=== PATIENT | female | born 1980 | race Caucasian/White ===

== ENCOUNTER 2017-12-09 08:00 | Emergency (ER) | payer BC ==
--- NOTE | 2017-12-09 08:47 | EKG ---
Test Date: 2017-12-09 Test Time: 08:25:56 Overhauler Helper: TAN MEASUREMENT RESULTS: Intervals: Rate: 92 MD: 140 QRSD: 98 QT: 364 QTc: 450 [place]: P: 16 MD: 140 QRS: 13 T: 13 INTERPRETIVE STATEMENTS: Normal sinus rhythm Normal ECG No previous ECG available for comparison Electronically Signed On 12-09-17 08:46:23 CDT by Michael Waldron
[2017-12-09 08:54] LABS: Absolute Lymphocytes (CBC) 2.7 K/uL (0.7-4.9); Absolute Monocytes 0.5 K/uL (0.1-1.3); Absolute Neutrophil 3.9 K/uL (1.8-8.0); Basophils % 0.5 % (0-1.3); Eosinophils % 3.8 % (0-4.4); Hematocrit 48.2 % (36.0-45.0); Lymphocytes % 36.6 % (15.3-44.8); MCH 30.8 pg (27.0-35.0); MCV 89.4 fL (80-100); MPV 7.8 fL (7.6-11.3); Monocytes % 7.1 % (3.3-12.3); RBC Red Blood Cell Count 5.39 M/uL (3.86-4.86)
[2017-12-09 08:59] LABS: Protime INR 1.03
[2017-12-09] MEDS ORDERED: NA CHLORIDE 0.9% 1,000 ML ONE (09:03)
[2017-12-09] MEDS ORDERED: KETOROLAC 30 MG/ML INJ ONE (09:03)
[2017-12-09 09:13] LABS: Potassium 3.8 mEq/L (3.6-5.0)
[2017-12-09 09:19] LABS: Albumin 4.5 g/dL (3.2-5.5); Bilirubin Direct 0.1 mg/dL (0-0.2); Bilirubin Total 0.6 mg/dL (0.3-1.2); Magnesium 2.1 mg/dL (1.8-2.5); Protein, Total 8.6 g/dL (6.0-8.3)
[2017-12-09 09:21] LABS: CKMB Creatine Kinase MB 1.6 ng/ml (0.3-4.0)
--- NOTE | 2017-12-09 09:21 | RAD REPORT ---
EXAM DESCRIPTION: RAD - Chest Single View - 12/09/2017 9:13 am CLINICAL HISTORY: Chest pain COMPARISON: July 2008 TECHNIQUE: AP portable chest image was obtained 0902 hours . FINDINGS: Lungs are clear. Heart and vasculature are normal. No measurable pleural effusion and no p neumothorax. No gross bony abnormality seen. No acute aortic findings suspected. IMPRESSION: No acute cardiopulmonary process. No suspicious change from comparison.
--- NOTE | 2017-12-09 09:45 | RAD REPORT ---
EXAM DESCRIPTION: CT - Head Brain Wo Cont - 12/09/2017 9:29 am CLINICAL HISTORY: Headache left arm numbness, tingling in the fingers COMPARISON: None. TECHNIQUE: Axial 5 mm thick images of the head were obtained without IV contrast. All CT scans are performed using dose optimization technique as appropriate and may include automated exposure control or mA/KV adjustment according to patient size. FINDINGS: No intracranial hemorrhage, mass, edema or shift of mid-line structures. No acute infarcti on changes seen. No abnormal extra-axial fluid collections. Ventricles are normal. Mastoid air cells and visualized portions of the paranasal sinuses are clear. No acute bony findings. IMPRESSION: Negative non-contrast CT head examination.
[2017-12-09 10:00] LABS: Urine Blood NEGATIVE (NEG); Urine Glucose NEGATIVE (NEG); Urine Protein NEGATIVE (NEG); Urine Specific Gravity 1.015 (1.005-1.030); Urine pH 5.5 (5.0-7.0)
[2017-12-09] MEDS ORDERED: MORPHINE 4 MG/ML SYR ONE (10:21)
[2017-12-09] MEDS ORDERED: ONDANSETRON 4 MG/2 ML VIAL ONE (10:21)
--- NOTE | 2017-12-09 10:44 | EDPHYS ---
Physician Documentation [facility] Name: Kaley Dobson Age: 37 yrs Sex: Female : 1980 Arrival Date: 12/09/2017 Time: 08:03 Bed 19 Private MD: out of town, doctor ED Physician Rayo Webster HPI: 12/09 08:59 This 37 yrs old Female presents to ER via Ambulatory with complaints of Chest kdr Pain, Numbness Of Arm, Headache. 09:00 On Thursday last, the patient stopped smoking (2 ppd to 3 cigarettes pd) and drinking kdr Cokes (12 pack per two days). Since then, she has developed a severe frontal WAHL and tingling in her left arm that radiates to her finger tips. When she smokes a cigarette, she gets slight temporary relief. She has no photophobia or n/v. WAHL onset was brisk but not abrupt or thunderclap. Onset: The symptoms/episode began/occurred suddenly, 2 day(s) ago. Severity of symptoms: At their worst the symptoms were moderate in the emergency department the symptoms are unchanged. The patient has not experienced similar symptoms in the past. The patient has not recently seen a physician. 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 - Social history:: Smoking status: Patient uses tobacco products, smokes one pack cigarettes per day. recently quit smoking. ROS: 09:00 Constitutional: Negative for fever, chills, and weight loss, Eyes: Negative for injury, kdr pain, redness, and discharge, ENT: Negative for injury, pain, and discharge, Neck: Negative for injury, pain, and swelling, Cardiovascular: Negative for palpitations, and edema - she has had chest discomfort Respiratory: Negative for shortness of breath, cough, wheezing, and pleuritic chest pain, Abdomen/GI: Negative for abdominal pain, nausea, vomiting, diarrhea, and constipation, Back: Negative for injury and pain, : Negative for injury, bleeding, discharge, and swelling, MS/Extremity: Negative for injury and deformity, Skin: Negative for injury, rash, and discoloration, Psych: Negative for depression, anxiety, suicide ideation, homicidal ideation, and hallucinations, Allergy/Immunology: Negative for hives, rash, and allergies, Endocrine: Negative for neck swelling, polydipsia, polyuria, polyphagia, and marked weight changes, Hematologic/Lymphatic: Negative for swollen nodes, abnormal bleeding, and unusual bruising. 09:00 Neuro: Positive for headache, Paresthesia to left arm/finer tips. Exam: 09:00 Constitutional: This is a well developed, well nourished patient who is awake, alert, kdr and in no acute distress. Head/Face: Normocephalic, atraumatic. Eyes: Pupils equal round and reactive to light, extra-ocular motions intact. Lids and lashes normal. Conjunctiva and sclera are non-icteric and not injected. Cornea within normal limits. Periorbital areas with no swelling, redness, or edema. Neck: Trachea midline, no thyromegaly or masses palpated, and no cervical lymphadenopathy. Supple, full range of motion without nuchal rigidity, or vertebral point tenderness. No Meningismus. Chest/axilla: Normal chest wall appearance and motion. Nontender with no deformity. No lesions are appreciated. Cardiovascular: Regular rate and rhythm with a normal S1 and S2. No gallops, murmurs, or rubs. Normal PMI, no JVD. No pulse deficits. Respiratory: Lungs have equal breath sounds bilaterally, clear to auscultation and percussion. No rales, rhonchi or wheezes noted. No increased work of breathing, no retractions or nasal flaring. Abdomen/GI: Soft, non-tender, with normal bowel sounds. No distension or tympany. No guarding or rebound. No evidence of tenderness throughout. Back: No spinal tenderness. No costovertebral tenderness. Full range of motion. Skin: Warm, dry with normal turgor. Normal color with no rashes, no lesions, and no evidence of cellulitis. MS/ Extremity: Pulses equal, no cyanosis. Neurovascular intact. Full, normal range of motion. Neuro: Awake and alert, GCS 15, oriented to person, place, time, and situation. Cranial nerves II-XII grossly intact. Motor strength 5/5 in all extremities. Sensory grossly intact. Cerebellar exam normal. Normal gait. Psych: Awake, alert, with orientation to person, place and time. Behavior, mood, and affect are within normal limits. Vital Signs: 08:22 BP 143 / 104; Pulse 88; Resp 18 S; Temp 98.2(TE); Pulse Ox 99% on R/A; Weight 115.67 iw kg; Height 5 ft. 6 in. (167.64 cm); Pain 10/10; 08:55 BP 112 / 78; Pulse 86; Resp 15; Pulse Ox 100% ; tw2 09:21 BP 123 / 86; Pulse 85; Resp 19; Pulse Ox 98% on R/A; tw2 10:41 BP 115 / 84; Pulse 87; Resp 16; Pulse Ox 100% on R/A; tw2 11:12 BP 120 / 89; Pulse 90; Resp 17; Pulse Ox 100% on R/A; tw2 08:22 Body Mass Index 41.16 (115.67 kg, 167.64 cm) iw MDM: 08:26 Patient medically screened. kdr 10:46 Data reviewed: vital signs, nurses notes, lab test result(s), radiologic studies. kdr 12/09 08:37 Order name: Basic Metabolic Panel; Complete Time: 10:12/09 08:37 Order name: BNP; Complete Time: 10: 12/09 08:37 Order name: CBC with Diff; Complete Time: 10: 12/09 08:37 Order name: Ckmb; Complete Time: 10:12/09 08:37 Order name: CPK; Complete Time: 10: 12/09 08:37 Order name: LFT's; Complete Time: 10: 12/09 08:37 Order name: Magnesium; Complete Time: 10:12/09 08:37 Order name: PT-INR; Complete Time: 10: 12/09 08:37 Order name: Ptt, Activated; Complete Time: 10: 12/09 08:37 Order name: Troponin (emerg Dept Use Only); Complete Time: 10: 12/09 08:37 Order name: XRAY Chest (1 view); Complete Time: 10: 1 12/09 08:56 Order name: CT Head Brain wo Cont; Complete Time: : kdr 05/16 09:19 Order name: Urine Dipstick--Ancillary (enter results); Complete Time: 10:11 em12/09 09:19 Order name: Urine --Ancillary (enter results); Complete Time: 10:11 12/09 08:37 Order name: EKG; Complete Time: 08:37 em12/09 08:37 Order name: Cardiac monitoring; Complete Time: 08:46 12/09 08:37 Order name: EKG - Nurse/Tech; Complete Time: 08:46 12/09 08:37 Order name: IV Saline Lock; Complete Time: 08:47 12/09 08:37 Order name: Labs collected and sent; Complete Time: 08:47 12/09 08:37 Order name: O2 Per Protocol; Complete Time: 08:47 12/09 08:37 Order name: O2 Sat Monitoring; Complete Time: 08:47 12/09 08:37 Order name: Urine Dipstick-Ancillary (obtain specimen); Complete Time: 09:15 em1 Administered Medications: 09:12 Drug: TORadol 30 mg Route: IVP; Site: right antecubital; tw2 10:17 Follow up: Response: No adverse reaction; Pain is unchanged, physician notified tw2 09:14 Drug: NS 0.9% 1000 ml Route: IV; Rate: 1 bolus; Site: right antecubital; tw2 11:10 Follow up: Response: No adverse reaction; IV Status: Completed infusion; IV Intake: tw2 1000ml 10:22 Drug: Zofran 4 mg Route: IVP; Site: right antecubital; tw2 10:50 Follow up: Response: No adverse reaction tw2 10:24 Drug: morphine 4 mg Route: IVP; Site: right antecubital; tw2 11:00 Follow up: Response: Pain is decreased tw2 Disposition: 12/09/17 10:43 Discharged to Home. Impression: Caffeine and nicotine withdrawal, Headache. - Condition is Stable. - Discharge Instructions: General Headache Without Cause, Smoking Cessation, Smoking, You Can Quit, [id number]. - Prescriptions for Tylenol- Codeine #3 300-30 mg Oral Tablet - take 2 tablets by ORAL route every 6 hours As needed Take one to two tablets every 4 - 6 hours as needed; 12 tablet. Xanax 1 mg Oral Tablet - take 1 tablet by ORAL route every 8 hours As needed; 12 tablet. - Medication Reconciliation Form, Thank You Letter, Antibiotic Education, Prescription Opioid Use, Work release form form. - Follow up: Private Physician; When: 2 - 3 days; Reason: If symptoms return, Further diagnostic work-up, Recheck today's complaints, Continuance of care, Re-evaluation by your physician. - Problem is new. - Symptoms have improved. Signatures: Dispatcher [employer] EDMS Rayo Webster MD MD kdr Williams, Irene, RN RN Alli Nicholson em1 Pema Sumner RN RN tw2 Corrections: (The following items were deleted from the chart) 08:46 08:22 PMHx: None; iw tw2 11:14 10:43 12/09/2017 10:43 Discharged to Home. Impression: Caffeine and nicotine tw2 withdrawal; Headache. Condition is Stable. Forms are Medication Reconciliation Form, Thank You Letter, Antibiotic Education, Prescription Opioid Use. Follow up: Private Physician; When: 2 - 3 days; Reason: If symptoms return, Further diagnostic work-up, Recheck today's complaints, Continuance of care, Re-evaluation by your physician. Problem is new. Symptoms have improved. kdr
--- NOTE | 2017-12-09 10:44 | ER ---
Nurse's Notes [facility] Name: Kaley Dobson Age: 37 yrs Sex: Female : 1980 Arrival Date: 12/09/2017 Time: 08:03 Bed 19 Private MD: out of town, doctor Diagnosis: Caffeine and nicotine withdrawal;Headache Presentation: 12/09 08:19 Presenting complaint: Patient states: has had headache since yesterday morning, seeing iw spots when she blinks, quit smoking and caffeine on Thursday, also started having left arm numbness, tingling in fingers this morning, also feels a heaviness in left side of chest. Transition of care: patient was not received from another setting of care. Onset of symptoms was December 07, 2017. Initial Sepsis Screen: Does the patient meet any 2 criteria? No. Patient's initial sepsis screen is negative. Does the patient have a suspected source of infection? No. Patient's initial sepsis screen is negative. Care prior to arrival: None. 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 - Social history:: Smoking status: Patient uses tobacco products, smokes one pack cigarettes per day. recently quit smoking. Screenin:20 Abuse screen: Denies threats or abuse. Nutritional screening: No deficits noted. tw2 Tuberculosis screening: No symptoms or risk factors identified. Fall Risk None identified. Assessment: 08:34 General: Appears obese, well groomed, Behavior is cooperative, anxious. Pain: Complains tw2 of pain in chest and headache Pain radiates to left arm Pain began gradually. Neuro: Level of Consciousness is awake, alert, obeys commands, Oriented to person, place, time, situation. Cardiovascular: Reports chest pain, Denies shortness of breath. Cardiovascular: Heart tones S1 S2 Capillary refill < 3 seconds Patient's skin is warm and dry. Respiratory: Airway is patent Respiratory effort is even, unlabored, Respiratory pattern is regular, symmetrical, Breath sounds are clear bilaterally. GI: No signs and/or symptoms were reported involving the gastrointestinal system. Abdomen is round non-distended, obese, Bowel sounds present X 4 quads. : No signs and/or symptoms were reported regarding the genitourinary system. EENT: Reports pain in top of head and forehead. Derm: No signs and/or symptoms reported regarding the dermatologic system. Musculoskeletal: Range of motion: intact in all extremities, Reports tingling in left arm. 08:46 Reassessment: provider Dr. Webster at bedside at this time. tw2 09:22 Reassessment: Patient appears in no apparent distress at this time. Patient and/or tw2 family updated on plan of care and expected duration. Pain level reassessed. Patient is alert, oriented x 3, equal unlabored respirations, skin warm/dry/pink. 10:41 Reassessment: Patient appears in no apparent distress at this time. Patient and/or tw2 family updated on plan of care and expected duration. Pain level reassessed. Patient is alert, oriented x 3, equal unlabored respirations, skin warm/dry/pink. Patient states feeling better. Patient states symptoms have improved. 11:13 Reassessment: Patient appears in no apparent distress at this time. Patient and/or tw2 family updated on plan of care and expected duration. Pain level reassessed. Patient is alert, oriented x 3, equal unlabored respirations, skin warm/dry/pink. Vital Signs: 08:22 BP 143 / 104; Pulse 88; Resp 18 S; Temp 98.2(TE); Pulse Ox 99% on R/A; Weight 115.67 iw kg; Height 5 ft. 6 in. (167.64 cm); Pain 10/10; 08:55 BP 112 / 78; Pulse 86; Resp 15; Pulse Ox 100% ; tw2 09:21 BP 123 / 86; Pulse 85; Resp 19; Pulse Ox 98% on R/A; tw2 10:41 BP 115 / 84; Pulse 87; Resp 16; Pulse Ox 100% on R/A; tw2 11:12 BP 120 / 89; Pulse 90; Resp 17; Pulse Ox 100% on R/A; tw2 08:22 Body Mass Index 41.16 (115.67 kg, 167.64 cm) iw ED Course: 08:03 Patient arrived in ED. mr 08:03 out of town, doctor is Private Physician. mr 08:16 Pema Sumner, RN is Primary Nurse. tw2 08:19 Arm band placed on. tw2 08:19 Placed in gown. Bed in low position. Adult w/ patient. pvc monitor on. Pulse ox on. tw2 NIBP on. 08:20 No provider procedures requiring assistance completed. Patient maintains SpO2 tw2 saturation greater than 95% on room air. 08:21 Triage completed. iw 08:26 Rayo Webster MD is Attending Physician. kdr 08:30 Inserted saline lock: 22 gauge in right antecubital area, using aseptic technique. tw2 Blood collected. 09:[address] vm2 09:12 X-ray completed. Portable x-ray completed in exam room. Patient tolerated procedure la2 well. 09:14 XRAY Chest (1 view) In Process Unspecified. EDMS 09:29 CT completed. Patient tolerated procedure well. Patient moved to CT via stretcher. sj Patient moved back from CT. 09:30 CT Head Brain wo Cont In Process Unspecified. EDMS 09:36 EKG done, by aerospace physiological technician. reviewed by Rayo Webster MD. sm3 11:14 IV discontinued, intact, bleeding controlled, No redness/swelling at site. Pressure tw2 dressing applied. Administered Medications: 09:12 Drug: TORadol 30 mg Route: IVP; Site: right antecubital; tw2 10:17 Follow up: Response: No adverse reaction; Pain is unchanged, physician notified tw2 09:14 Drug: NS 0.9% 1000 ml Route: IV; Rate: 1 bolus; Site: right antecubital; tw2 11:10 Follow up: Response: No adverse reaction; IV Status: Completed infusion; IV Intake: tw2 1000ml 10:22 Drug: Zofran 4 mg Route: IVP; Site: right antecubital; tw2 10:50 Follow up: Response: No adverse reaction tw2 10:24 Drug: morphine 4 mg Route: IVP; Site: right antecubital; tw2 11:00 Follow up: Response: Pain is decreased tw2 Intake: 11:10 IV: 1000ml; Total: 1000ml. tw2 Outcome: 10:43 Discharge ordered by . kdr 11:13 Discharged to home ambulatory, with family. tw2 11:13 Condition: stable 11:13 Discharge instructions given to patient, family, Instructed on discharge instructions, follow up and referral plans. no drinking with medication, no driving heavy equipment, medication usage, Demonstrated understanding of instructions, follow-up care, medications, Prescriptions given X 2. 11:14 Patient left the ED. tw2 Signatures: Dispatcher [employer] EDMS Rayo Webster MD MD [facility] Antwan, Jimena mr Surendra, Marion Chowdhury RN RN iw Pema Sumner RN RN 2 Cathy Harrison Claudette Sanchez Shakira 3 Corrections: (The following items were deleted from the chart) 08:46 08:22 PMHx: None; [facility]
== END 2017-12-09 11:14 | disposition home or self-care (01) ==
LOC: ER 08:00
DX: F15.93 Other stimulant use, unspecified with withdrawal (principal); F17.213 Nicotine dependence, cigarettes, with withdrawal; Z88.0 Allergy status to penicillin
CPT/HCPCS: 36415; 70450; 71045; 80048; 80076; 81003; 81025; 82550; 82553; 83735; 83880; 84484; 85025; 85610; 85730; 93005; 96361; 96374; 96375; 99285; J2405; J7030

== ENCOUNTER 2018-06-23 19:34 | Emergency (ER) | payer BC ==
[2018-06-23] MEDS ORDERED: HYDROCODONE/APAP 5/325 MG TAB ONE (20:59)
[2018-06-23] MEDS ORDERED: TETANUS & DIPHTHERIA TOX,ADULT 0.5 ML VIAL ONE (20:59)
[2018-06-23] MEDS ORDERED: LIDOCAINE 1% MPF 5 ML VIAL ONE (21:02)
--- NOTE | 2018-06-23 21:39 | ER ---
Nurse's Notes [facility] Name: Kaley Dobson Age: 37 yrs Sex: Female : 1980 Arrival Date: 06/23/2018 Time: 19:37 Bed 9 Private MD: Diagnosis: Cutaneous abscess of back [any part, except buttock] Presentation: 06/23 20:07 Presenting complaint: Patient states: Redness and inflammation to cyst in middle of aj back for 2 days. Patient states, "I have had this bump there for years but it has never gotten so swollen and painful.". Transition of care: patient was not received from another setting of care. Onset of symptoms was June 21, 2018. Risk Assessment: Do you want to hurt yourself or someone else? Patient reports no desire to harm self or others. Initial Sepsis Screen: Does the patient meet any 2 criteria? No. Patient's initial sepsis screen is negative. Does the patient have a suspected source of infection? No. Patient's initial sepsis screen is negative. Care prior to arrival: None. 20:07 Method Of Arrival: Ambulatory 20:07 Acuity: JES 4 aj Triage Assessment: 20:10 General: Appears in no apparent distress. comfortable, Behavior is calm, cooperative, aj appropriate for age. Pain: Complains of pain in thoracic area. Neuro: Level of Consciousness is awake, alert, obeys commands, Oriented to person, place, time, situation, Appropriate for age. Respiratory: Airway is patent Respiratory effort is even, unlabored, Respiratory pattern is regular, symmetrical. Derm: Skin is intact, is healthy with good turgor, Skin is pink, warm \\T\\ dry. normal, Abscess located on thoracic area. 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 - Social history:: Smoking status: Patient/guardian denies using tobacco. - Ebola Screening: : Patient negative for fever greater than or equal to 101.5 degrees Fahrenheit, and additional compatible Ebola Virus Disease symptoms Patient denies exposure to infectious person Patient denies travel to an Ebola-affected area in the 21 days before illness onset. Screenin:19 Abuse screen: Denies threats or abuse. Denies injuries from another. Nutritional ao screening: No deficits noted. Tuberculosis screening: No symptoms or risk factors identified. Fall Risk None identified. Assessment: 20:17 General: Appears in no apparent distress. comfortable, Behavior is calm, cooperative, ao appropriate for age. Pain: Complains of pain in back. Neuro: Level of Consciousness is awake, alert, obeys commands, Oriented to person, place, time, situation, Appropriate for age Moves all extremities. Full function Speech is normal, Facial symmetry appears normal. Cardiovascular: Capillary refill < 3 seconds Patient's skin is warm and dry. Respiratory: Airway is patent Respiratory effort is even, unlabored, Respiratory pattern is regular, symmetrical. GI: Abdomen is non-distended, obese. : No signs and/or symptoms were reported regarding the genitourinary system. EENT: No signs and/or symptoms were reported regarding the EENT system. Derm: Reports cyst in the back. Musculoskeletal: No signs and/or symptoms reported regarding the musculoskeletal system. 21:16 Reassessment: Waiting on provider to I\\T\\ D. ao 22:28 Reassessment: Patient appears in no apparent distress at this time. Patient and/or ao family updated on plan of care and expected duration. Pain level reassessed. DC instructions given to patient. Patient agree with POC and to follow up with PCP. Vital Signs: 20:45 BP 125 / 77; Pulse 96; Resp 18; Temp 96.7(O); Pulse Ox 97% on R/A; Weight 117.93 kg ao (R); Height 5 ft. 7 in. (170.18 cm) (R); Pain 4/10; 20:45 Body Mass Index 40.72 (117.93 kg, 170.18 cm) ao ED Course: 19:37 Patient arrived in ED. ds1 20:08 Triage completed. aj 20:10 Arm band placed on right wrist. Patient placed in the treatment room. aj 20:11 Joe Burkett NP is PHCP. pm1 20:11 Nilo Francis MD is Attending Physician. pm1 20:17 Helder Mckeon RN is Primary Nurse. ao 20:19 Patient has correct armband on for positive identification. Pulse ox on. ao 21:39 Minesh Marcos MD is Referral Physician. pm1 22:28 Assist provider with I \\T\\ D: of an abscess on Back Set up I\\T\\D tray. Performed by Joe Burkett WOOD TILE INSTALLATION HELPER Dressing with 4X4s, Patient tolerated well. 22:30 Patient did not have IV access during this emergency room visit. ao Administered Medications: 21:02 Drug: Tetanus-Diphtheria Toxoid Adult 0.5 ml {Electronic Masking System Operator: [employer]. Exp: ao 08/14/2020. Lot #: [id number]. } Route: IM; Site: left deltoid; 21:33 Follow up: Response: No adverse reaction ao 21:03 Drug: [place] 5 mg-325 mg 1 tabs Route: PO; ao 21:33 Follow up: Response: No adverse reaction ao 21:32 Drug: Lidocaine (1 %) 5 ml {Note: By Joe SHELLEY.} Volume: 5 ml; Route: Infiltration; ao Outcome: 21:38 Discharge ordered by MD. pm1 22:29 Discharged to home ambulatory. ao 22:29 Condition: stable 22:29 Discharge instructions given to patient, Instructed on discharge instructions, follow up and referral plans. Demonstrated understanding of instructions, follow-up care, medications, Prescriptions given X 2. 22:30 Patient left the ED. ao Signatures: Veronique Young, RN Sirena Manuel ds1 Helder Mckeon RN RN ao Marinas, Patrick, KARSTEN WOOD TILE INSTALLATION HELPER pm1
--- NOTE | 2018-06-23 21:39 | EDPHYS ---
Physician Documentation [facility] Name: Kaley Dobson Age: 37 yrs Sex: Female : 1980 Arrival Date: 06/23/2018 Time: 19:37 Bed 9 Private MD: ED Physician Nilo Francis HPI: 06/23 21:40 This 37 yrs old Female presents to ER via Ambulatory with complaints of Boil pm1 on Back. 21:40 Onset: The symptoms/episode began/occurred 2 day(s) ago. Associated signs and symptoms: pm1 Pertinent negatives: fever. The patient has not recently seen a physician. The patient has not recently seen a physician, has an appointment scheduled, with dermatology in two days. Patient with cyst to back for many years that she would occasionally have drained by her mother. Mother tried to express with kitchen knife today and removed some drainage. 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 - Social history:: Smoking status: Patient/guardian denies using tobacco. - Ebola Screening: : Patient negative for fever greater than or equal to 101.5 degrees Fahrenheit, and additional compatible Ebola Virus Disease symptoms Patient denies exposure to infectious person Patient denies travel to an Ebola-affected area in the 21 days before illness onset. ROS: 21:40 Constitutional: Negative for fever, chills, and weight loss, Eyes: Negative for injury, pm1 pain, redness, and discharge, ENT: Negative for injury, pain, and discharge, Neck: Negative for injury, pain, and swelling, Cardiovascular: Negative for chest pain, palpitations, and edema, Respiratory: Negative for shortness of breath, cough, wheezing, and pleuritic chest pain, Abdomen/GI: Negative for abdominal pain, nausea, vomiting, diarrhea, and constipation, Back: Negative for injury and pain, : Negative for injury, bleeding, discharge, and swelling, MS/Extremity: Negative for injury and deformity. 21:40 Neuro: Negative for headache, weakness, numbness, tingling, and seizure. 21:40 Skin: Positive for abscess, of the back. Exam: 21:40 Constitutional: This is a well developed, well nourished patient who is awake, alert, pm1 and in no acute distress. Head/Face: Normocephalic, atraumatic. Eyes: Pupils equal round and reactive to light, extra-ocular motions intact. Lids and lashes normal. Conjunctiva and sclera are non-icteric and not injected. Cornea within normal limits. Periorbital areas with no swelling, redness, or edema. ENT: Nares patent. No nasal discharge, no septal abnormalities noted. Tympanic membranes are normal and external auditory canals are clear. Oropharynx with no redness, swelling, or masses, exudates, or evidence of obstruction, uvula midline. Mucous membranes moist. Neck: Trachea midline, no thyromegaly or masses palpated, and no cervical lymphadenopathy. Supple, full range of motion without nuchal rigidity, or vertebral point tenderness. No Meningismus. Chest/axilla: Normal chest wall appearance and motion. Nontender with no deformity. No lesions are appreciated. Cardiovascular: Regular rate and rhythm with a normal S1 and S2. No gallops, murmurs, or rubs. Normal PMI, no JVD. No pulse deficits. Respiratory: Lungs have equal breath sounds bilaterally, clear to auscultation and percussion. No rales, rhonchi or wheezes noted. No increased work of breathing, no retractions or nasal flaring. Abdomen/GI: Soft, non-tender, with normal bowel sounds. No distension or tympany. No guarding or rebound. No evidence of tenderness throughout. Back: No spinal tenderness. No costovertebral tenderness. Full range of motion. 21:40 Skin: Appearance: normal except for affected area, abscess, that is small, approximately 1 cm(s), of the thoracic area, no surrounding cellulitis, drainage, fluctuance or pointing. Vital Signs: 20:45 BP 125 / 77; Pulse 96; Resp 18; Temp 96.7(O); Pulse Ox 97% on R/A; Weight 117.93 kg ao (R); Height 5 ft. 7 in. (170.18 cm) (R); Pain 4/10; 20:45 Body Mass Index 40.72 (117.93 kg, 170.18 cm) ao Procedures: 21:40 I \T\ D: Incision and drainage was performed for an abscess of the thoracic area Prepped pm1 with Betadine, Anesthetized with 2 ml's 1% Lidocaine. Incised with #11 blade. Drained Packed with cavity too small to put any packing. Dressing: sterile 4x4 gauze, the patient tolerated the procedure well, less than 0.5 ml of serosanguinous fluid needle aspirated. MDM: 20:12 Patient medically screened. pm1 21:38 Data reviewed: vital signs. Data interpreted: Pulse oximetry: on room air is 97 %. pm1 Interpretation: normal. Counseling: I had a detailed discussion with the patient and/or guardian regarding: the historical points, exam findings, and any diagnostic results supporting the discharge/admit diagnosis, the need for outpatient follow up, a general surgeon, to return to the emergency department if symptoms worsen or persist or if there are any questions or concerns that arise at home. 06/23 20:24 Order name: Incision \T\ Drainage Setup; Complete Time: 21:03 pm1 Administered Medications: 21:02 Drug: Tetanus-Diphtheria Toxoid Adult 0.5 ml {Iron Guardrail Installer: vivit. Exp: ao 08/14/2020. Lot #: [id number]. } Route: IM; Site: left deltoid; 21:33 Follow up: Response: No adverse reaction ao 21:03 Drug: Inglis 5 mg-325 mg 1 tabs Route: PO; ao 21:33 Follow up: Response: No adverse reaction ao 21:32 Drug: Lidocaine (1 %) 5 ml {Note: By Joe SHELLEY.} Volume: 5 ml; Route: Infiltration; ao Disposition: 06/24 06:37 Co-signature as Attending Physician, Nilo Francis MD Available for consultation at ps1 all times. . Disposition: 06/23/18 21:38 Discharged to Home. Impression: Cutaneous abscess of back [any part, except buttock]. - Condition is Stable. - Discharge Instructions: Skin Abscess. - Prescriptions for Bactrim DS 800- 160 mg Oral Tablet - take 1 tablet by ORAL route every 12 hours for 10 days; 20 tablet. Tylenol- Codeine #3 300-30 mg Oral Tablet - take 2 tablets by ORAL route every 6 hours As needed; 20 tablet. - Work release form, Medication Reconciliation Form, Thank You Letter, Antibiotic Education, Prescription Opioid Use form. - Follow up: Emergency Department; When: As needed; Reason: Worsening of condition. Follow up: Private Physician; When: 2 - 3 days; Reason: Recheck today's complaints, Continuance of care, Re-evaluation by your physician. Follow up: Minesh Marcos MD; When: 2 - 3 days; Reason: Recheck today's complaints, Continuance of care, Re-evaluation by your physician. - Problem is new. - Symptoms have improved. Signatures: Veronique Young RN RN aj Ortiz, Alex, RN RN ao Marinas, Patrick, OPERATIONS ADMINISTRATIVE ASSISTANT OPERATIONS ADMINISTRATIVE ASSISTANT pm1 Nilo Francis MD MD ps1 Corrections: (The following items were deleted from the chart) 06/23 21:39 21:38 06/23/2018 21:38 Discharged to Home. Impression: Cutaneous abscess of back [any pm1 part, except buttock]. Condition is Stable. Forms are Medication Reconciliation Form, Thank You Letter, Antibiotic Education, Prescription Opioid Use. Follow up: Emergency Department; When: As needed; Reason: Worsening of condition. Follow up: Private Physician; When: 2 - 3 days; Reason: Recheck today's complaints, Continuance of care, Re-evaluation by your physician. Problem is new. Symptoms have improved. pm1 22:30 21:39 06/23/2018 21:38 Discharged to Home. Impression: Cutaneous abscess of back [any ao part, except buttock]. Condition is Stable. Discharge Instructions: Skin Abscess. Prescriptions for Bactrim DS 800-160 mg Oral Tablet - take 1 tablet by ORAL route every 12 hours for 10 days; 20 tablet, Tylenol-Codeine #3 300-30 mg Oral Tablet - take 2 tablets by ORAL route every 6 hours As needed; 20 tablet. and Forms are Medication Reconciliation Form, Thank You Letter, Antibiotic Education, Prescription Opioid Use, Work release form. Follow up: Emergency Department; When: As needed; Reason: Worsening of condition. Follow up: Private Physician; When: 2 - 3 days; Reason: Recheck today's complaints, Continuance of care, Re-evaluation by your physician. Follow up: Minesh Marcos; When: 2 - 3 days; Reason: Recheck today's complaints, Continuance of care, Re-evaluation by your physician. Problem is new. Symptoms have improved. pm1
== END 2018-06-23 22:30 | disposition home or self-care (01) ==
LOC: ER 19:34
PROC: 0J970ZZ Drainage of Back Subcutaneous Tissue and Fascia, Open Approach (ICD-10-PCS; principal; 2018-06-23)
DX: L02.212 Cutaneous abscess of back [any part, except buttock and flank] (principal); Z23 Encounter for immunization; Z88.0 Allergy status to penicillin
CPT/HCPCS: 90714; 99284

== ENCOUNTER 2019-09-16 23:38 | Emergency (ER) | payer BC ==
--- OUTSIDE RECORDS SUMMARY | 2019-09-16 23:41 | XMS REPORT ---
:1980 [facility] [address] [place] [id number] Care Team Providers Name Role Phone Unavailable Unavailable Unavailable Payers Payer Name Policy Type Policy Number Effective Date Expiration Date Problems This patient has no known problems. Allergies, Adverse Reactions, Alerts Allergy Name Allergy Status Severity Reaction(s) Onset Inactive Treating Comments Type Date Date Clinician tramadol DA Active 2019-08 00:00:0 0 Penicillins DA Active 2019-07 00:00:0 0 Penicillins DA Active 2018-11 00:00:0 0 Medications This patient has no known medications. Results Test Description Test Time Test Comments Text Results Atomic Results Result Comments - MRI JNT W/O CONT RT 2019-09-08 09:45:00 Patient Name: NATE FRIAS Unit No: [id number] EXAMS: CPT CODE: [id number] MRI LW JNT W/[place] [id number] MRI OF THE RIGHT ANKLE DIAGNOSIS: 1. There is no evidence for a mass in the tarsal tunnel. No definite compression is seen. 2. Partial-thickness longitudinal split tears of the peroneus longus and brevis tendons at the level of the lateral malleolus without subluxation or tenosynovitis. 3. Posterior tibial tenosynovitis without evidence for tendon tear. 4. Posterior lateral ganglion cyst extending from the posterior subtalar joint measuring 17 mm in maximum diameter with effusion and/or synovitis of the posterior subtalar joint. 5. Low-grade partial-thickness tearing of the Achilles tendon. 6. Longitudinally oriented partial-thickness tear of the plantar fascial insertion without retraction. COMMENT: COMPARISON: December 16, 2018 Scans were performed in the sagittal, axial and coronal planes utilizing T1, spin density with and without fat saturation and inversion recovery images. No focal bony or hyaline cartilage lesions are seen. Tendon abnormalities are as described. There is no evidence for ligamentous sprain or tear. The plantar fascia is abnormal as described. at 0945 Reported and signed by: Elvis Verma MD CC: Candido Santo MD Technologist: Denia Xiong, RT(R) Transcribed D/ (7669) [facility] NAME: NATE FRIAS [address] [place] [address] PHYS: Candido Duran MD : 1980 AGE: 39 SEX: F [place] [address] LOC: Y.MRI PHONE #: [phone] EXAM DATE: 09/07/2019 STATUS: DEP CLI FAX #: [phone] RAD #: D/C DT PAGE 1 Signed Report Patient Name: NATE FRIAS Unit No: [id number] EXAMS: CPT CODE: [id number] MRI LW JNT W/[place] [id number] <Continued> Orig Print D/T: S: 09/08/2019 (0793) [facility] NAME: NATE FRIAS [address] [place] [address] PHYS: Candido Duran MD : 1980 AGE: 39 SEX: F [place] [address] LOC: Y.MRI PHONE #: [phone] EXAM DATE: 09/07/2019 STATUS: DEP CLI FAX #: [phone] RAD #: D/C DT PAGE 2 Signed Report - XR FLUORO NDL 2019-08-22 09:56:00 Patient Name: NATE FRIAS Unit No: [id number] EXAMS: CPT CODE: [id number] XR FLUORO NDL 08429 FLUOROSCOPICALLY GUIDED INJECTION OF THE RIGHT PLANTAR FASCIAL INSERTION WITH STEROID AND LIDOCAINE COMMENT: COMPARISON: No prior exams available. After informed consent was obtained a needle was placed on the plantar fascial insertion with fluoroscopic guidance. Its position was confirmed with a lateral radiograph. 0.1 minutes of fluoroscopy time was utilized. Subsequently 2mL of Kenalog 40 mg per cc and 1mL of 1 percent lidocaine was injected. No immediate complications were encountered. FLUOROSCOPICALLY GUIDED INJECTION OF THE LEFT PLANTAR FASCIAL INSERTION WITH STEROID AND LIDOCAINE COMMENT: COMPARISON: No prior exams available. After informed consent was obtained a needle was placed on the plantar fascial insertion with fluoroscopic guidance. Its position was confirmed with a lateral radiograph. 0.1 minutes of fluoroscopy time was utilized. Subsequently 2mL of Kenalog 40 mg per cc and 1mL of 1 percent lidocaine was injected. No immediate complications were encountered. at 0956 Reported and signed by: Elvis Verma MD CC: Candido Santo MD Technologist: Thuy Osborn RT.(R) Transcribed D/ (0956) t.TREVORR.[facility] NAME: NATE FRIAS [address] [place] [address] PHYS: Candido Duran MD : 1980 AGE: 39 SEX: F [place] [address] LOC: Y.RAD PHONE #: [phone] EXAM DATE: 08/19/2019 STATUS: DEP CLI FAX #: [phone] RAD #: D/C DT PAGE 1 Signed Report Patient Name: NATE FRIAS Unit No: [id number] EXAMS: CPT CODE: [id number] XR FLUORO NDL [id number] <Continued> Orig Print D/T: S: 08/22/2019 (0959) [facility] NAME: NATE FRIAS [address] [place] [address] PHYS: Candido Duran MD : 1980 AGE: 39 SEX: F [place] [address] LOC: Y.RAD PHONE #: [phone] EXAM DATE: 08/19/2019 STATUS: DEP CLI FAX #: [phone] RAD #: D/C DT PAGE 2 Signed Report - XR FLUORO NDL 2018-12-17 11:55:00 Patient Name: NTAE FRIAS Unit No: [id number] EXAMS: CPT CODE: [id number] XR FLUORO NDL 83301 FLUOROSCOPICALLY GUIDED INJECTION OF THE RIGHT PLANTAR FASCIAL INSERTION WITH STEROID AND LIDOCAINE COMMENT: COMPARISON: No prior exams available. After informed consent was obtained a needle was placed on the plantar fascial insertion with fluoroscopic guidance. Its position was confirmed with a lateral radiograph. 0.1 minutes of fluoroscopy time was utilized. Subsequently 2mL of Kenalog 40 mg per cc and 1mL of 1 percent lidocaine was injected. No immediate complications were encountered. at 1153 Reported and signed by: Elvis Verma MD CC: Candido Santo MD Technologist: Thuy Osbron, RT.(R) Transcribed D/ (5583) t.SDR.[facility] NAME: NATE FRIAS [address] [facility] PHYS: NERISHELEN Candido Kay : 1980 AGE: 38 SEX: F [place] [address] LOC: Y.RAD PHONE #: [phone] EXAM DATE: 12/16/2018 STATUS: DEP CLI FAX #: [phone] RAD #: D/C DT PAGE 1 Signed Report Patient Name: NATE FRIAS Unit No: [id number] EXAMS: CPT CODE: [id number] XR FLUORO NDL 75768 <Continued> Orig Print D/T: S: 12/17/2018 (1723) [facility] NAME: NATE FRIAS [address] [facility] PHYS: BENOIT SantoCandido Klaus : 1980 AGE: 38 SEX: F [place] [address] LOC: Y.RAD PHONE #: [phone] EXAM DATE: 12/16/2018 STATUS: DEP CLI FAX #: [phone] RAD #: D/C DT PAGE 2 Signed Report - MRI LW JNT W/O CONT RT 2018-12-17 07:59:00 Patient Name: NATE FRIAS Unit No: [id number] EXAMS: CPT CODE: [id number] MRI LW JNT W/[place] [address] TECHNIQUE: Multiplanar multisequence MR images through the right ankle were acquired without contrast. COMPARISON: No comparison available. FINDINGS: Osseous: No acute fracture. Osseous edema is seen at the plantar fascia origin, likely reactive. Minimal subchondral edema of the cuboid at the fourth TMT joint appears degenerative.. Tendons: Peroneus brevis tendinosis is demonstrated with suspected partial tear. Mild posterior tibial tendinosis is demonstrated distally without evidence of tear. The Achilles and extensor tendons are maintained. Ligaments: Lateral ligamentous structures are intact. Deltoid and spring ligaments are maintained. Lisfranc ligament is normal. Other: Findings of plantar fasciitis are noted with thickening and increased signal of the medial origin. No discrete tear. Small subtalar joint effusion. Pronounced subcutaneous edema is centered about the ankle. IMPRESSION: 1. Findings compatible with plantar fasciitis with osseous edema the adjacent calcaneus. 2. Tendinosis and suspected partial tear of the peroneus brevis tendon. 3. Mild posterior tibial tendinosis distally. 4. Prominent subcutaneous edema about the ankle. at 0759 Reported and signed by: Shyam Agosto M.D. CC: Candido Santo MD Technologist: FARHEEN ROSS. RT(R) Transcribed D/ (0759) t.BEATRIZ.J [facility] NAME: NATE FRIAS [address] [facility] PHYS: Candido Duran : 1980 AGE: 38 SEX: F [place], [place] [address] LOC: Y.RAD PHONE #: [phone] EXAM DATE: 12/16/2018 STATUS: DEP CLI FAX #: [phone] RAD #: D/C DT PAGE 1 Signed Report Patient Name: NATE FRIAS Unit No: [id number] EXAMS: CPT CODE: [id number] MRI LW JNT W/[place] [id number] <Continued> Orig Print D/T: S: 12/17/2018 (0802) [facility] NAME: NATE FRIAS [address] [facility] PHYS: Candido Duran : 1980 AGE: 38 SEX: F [place], [place] [address] LOC: Y.RAD PHONE #: [phone] EXAM DATE: 12/16/2018 STATUS: DEP CLI FAX #: [phone] RAD #: D/C DT PAGE 2 Signed Report
[2019-09-17] MEDS ORDERED: HYDROMORPHONE HCL 0.5 MG/0.5 ML INJ ONE ×3 (01:02→02:50)
[2019-09-17] MEDS ORDERED: KETOROLAC 30 MG/ML INJ ONE (01:02)
[2019-09-17] MEDS ORDERED: ONDANSETRON 4 MG/2 ML VIAL ONE ×2 (01:03→02:50)
[2019-09-17 01:33] LABS: Absolute Lymphocytes (CBC) 2.8 K/uL (0.7-4.9); Basophils % 0.5 % (0-1.3); Hematocrit 39.6 % (36.0-45.0); Lymphocytes % 29.9 % (15.3-44.8); MPV 7.5 fL (7.6-11.3); RBC Red Blood Cell Count 4.43 M/uL (3.86-4.86)
[2019-09-17 01:42] LABS: Albumin 3.1 g/dL (3.4-5.0); Bilirubin Total 0.4 mg/dL (0.2-1.0); Potassium 3.8 mmol/L (3.5-5.1); Protein, Total 6.8 g/dL (6.4-8.2)
--- NOTE | 2019-09-17 02:45 | ER ---
Nurse's Notes [facility] Name: Kaley Dobson Age: 39 yrs Sex: Female : 1980 Arrival Date: 09/16/2019 Time: 23:41 Bed 19 Private MD: Diagnosis: Pain in left ankle and joints of left foot-sp foot/achilles surgery Presentation: 09/17 00:08 Presenting complaint: Patient states: "I had surgery on my Achilles repair and during jd3 the day I was fine. tonight though I can't seem to get the pain under control. " states: "she has been doubling up on her pain medication and it still isn't helping.". Transition of care: patient was not received from another setting of care. Onset of symptoms was September 16, 2019. Risk Assessment: Do you want to hurt yourself or someone else? Patient reports no desire to harm self or others. Initial Sepsis Screen: Does the patient meet any 2 criteria? No. Patient's initial sepsis screen is negative. Does the patient have a suspected source of infection? No. Patient's initial sepsis screen is negative. Note last Hydrocodone-Tylenol 5 mg- 325 mg taken last at 2030. Motrin last taken at 2240. Care prior to arrival: None. 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 - Coronavirus screen:: The patient has NOT traveled to [place] in the past 14 days. The patient has NOT had contact with known/suspected case of Coronavirus? Proceed with normal triage procedures. - Social history:: Smoking status: Patient/guardian denies using tobacco, the patient reports quitting approximately 2 years ago. - Family history:: not pertinent. - Ebola Screening: : Patient negative for fever greater than or equal to 101.5 degrees Fahrenheit, and additional compatible Ebola Virus Disease symptoms. Screenin:17 Abuse screen: Denies threats or abuse. Nutritional screening: No deficits noted. jd3 Tuberculosis screening: No symptoms or risk factors identified. Fall Risk Ambulatory Aid- Crutches/Cane/Walker (15 pts). Gait- Impaired (20 pts.). Mental Status- Oriented to own ability (0 pts). Total Jasso Fall Scale indicates Low Risk Score (25-44 pts). Fall prevention measures have been instituted. Side Rails Up X 2 Placed close to Nursing Station Frequent Obs/Assesments occuring Family Present and informed to notify staff if they need to leave bedside. Assessment: 00:18 General: Appears in no apparent distress. uncomfortable, Behavior is calm, cooperative, jd3 appropriate for age, post surgical dressing in place noted to the right ankle. dressing is clean, dry, and intact.. Pain: Complains of pain in right Achilles Quality of pain is described as burning, sharp, tender. Neuro: Level of Consciousness is awake, alert, obeys commands, Oriented to person, place, time, situation. Cardiovascular: Capillary refill < 3 seconds Patient's skin is warm and dry. Respiratory: Airway is patent Respiratory effort is even, unlabored, Respiratory pattern is regular, symmetrical. GI: No signs and/or symptoms were reported involving the gastrointestinal system. : No signs and/or symptoms were reported regarding the genitourinary system. EENT: No signs and/or symptoms were reported regarding the EENT system. Derm: Skin is intact, Skin is dry, Skin is normal, Skin temperature is warm. Musculoskeletal: Circulation, motion, and sensation intact. Range of motion: limited in right ankle. 01:25 Reassessment: Patient appears in no apparent distress at this time. No changes from jd3 previously documented assessment. Patient and/or family updated on plan of care and expected duration. Pain level reassessed. Patient is alert, oriented x 3, equal unlabored respirations, skin warm/dry/pink. 02:15 Reassessment: Patient appears in no apparent distress at this time. Patient and/or jd3 family updated on plan of care and expected duration. Pain level reassessed. Patient is alert, oriented x 3, equal unlabored respirations, skin warm/dry/pink. Patient states feeling better. 03:18 Reassessment: Patient appears in no apparent distress at this time. Patient and/or jd3 family updated on plan of care and expected duration. Pain level reassessed. Patient is alert, oriented x 3, equal unlabored respirations, skin warm/dry/pink. pt reported understanding of discharge instructions. Vital Signs: 00:16 BP 122 / 84; Pulse 82; Resp 19 S; Temp 98.2(TE); Pulse Ox 97% on R/A; Weight 117.93 kg jd3 (R); Height 5 ft. 7 in. (170.18 cm) (R); Pain 10/10; 02:40 BP 134 / 86; Pulse 85; Resp 17 S; Pulse Ox 100% on R/A; Pain 3/10; jd3 00:16 Body Mass Index 40.72 (117.93 kg, 170.18 cm) jd3 ED Course: 09/16 23:41 Patient arrived in ED. jg7 09/17 00:08 Gagandeep Virk, RN is Primary Nurse. jd3 00:13 Triage completed. jd3 00:17 Arm band placed on. jd3 00:20 Jl Zendejas MD is Attending Physician. dipak 00:21 Patient has correct armband on for positive identification. Adult w/ patient. jd3 01:10 Missed attempt(s): Bleeding controlled, band aid applied, catheter tip intact. oe 01:19 Inserted saline lock: 20 gauge in right antecubital area, using aseptic technique. oe Blood collected. 03:19 No provider procedures requiring assistance completed. IV discontinued, intact, jd3 bleeding controlled, No redness/swelling at site. Pressure dressing applied. Administered Medications: 01:22 Drug: Zofran 4 mg Route: IVP; Site: right antecubital; jd3 02:20 Follow up: Response: No adverse reaction jd3 01:23 Drug: TORadol 30 mg Route: IVP; Site: right antecubital; jd3 02:20 Follow up: Response: No adverse reaction jd3 01:23 Drug: Dilaudid 0.5 mg Route: IVP; Site: right antecubital; jd3 02:20 Follow up: Response: No adverse reaction; RASS: Alert and Calm (0) jd3 02:39 Drug: Dilaudid 0.5 mg Route: IVP; Site: right antecubital; jd3 03:20 Follow up: Response: No adverse reaction; RASS: Alert and Calm (0) jd3 02:55 Drug: Dilaudid 0.5 mg Route: IVP; Site: right antecubital; jd3 03:21 Follow up: Response: No adverse reaction; RASS: Alert and Calm (0) jd3 02:55 Drug: Zofran 4 mg Route: IVP; Site: right antecubital; jd3 03:21 Follow up: Response: No adverse reaction jd3 02:55 Drug: Valium 5 mg Route: PO; jd3 03:22 Follow up: Response: No adverse reaction jd3 Outcome: 02:44 Discharge ordered by MD. quesada 03:19 Discharged to home via wheelchair, with family. jd3 03:19 Condition: stable 03:19 Discharge instructions given to patient, family, Instructed on discharge instructions, follow up and referral plans. medication usage, Demonstrated understanding of instructions, follow-up care, medications, Prescriptions given X 2. 03:23 Patient left the ED. jd3 Signatures: Jl Zendejas MD MD cha Espinosa, Orlando oe Davies, Jonathon, EJ RN jd3 Mayra Ornelas jg7
--- NOTE | 2019-09-17 02:45 | EDPHYS ---
Physician Documentation [facility] Name: Kaley Dobson Age: 39 yrs Sex: Female : 1980 Arrival Date: 09/16/2019 Time: 23:41 Bed 19 Private MD: KRISTEN Physician Jl Zendejas HPI: 09/17 00:47 This 39 yrs old Female presents to ER via Wheelchair with complaints of Post dipak Surgical Pain. 00:47 The patient presents with an injury, pain, swelling. The complaints affect the right [facility] foot. Context: resulted from Achilles and calcaneal. 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 - Coronavirus screen:: The patient has NOT traveled to [place] in the past 14 days. The patient has NOT had contact with known/suspected case of Coronavirus? Proceed with normal triage procedures. - Social history:: Smoking status: Patient/guardian denies using tobacco, the patient reports quitting approximately 2 years ago. - Family history:: not pertinent. - Ebola Screening: : Patient negative for fever greater than or equal to 101.5 degrees Fahrenheit, and additional compatible Ebola Virus Disease symptoms. ROS: 00:47 Constitutional: Negative for fever, chills, and weight loss, Eyes: Negative for injury, dipak pain, redness, and discharge, ENT: Negative for injury, pain, and discharge, Neck: Negative for injury, pain, and swelling, Cardiovascular: Negative for chest pain, palpitations, and edema, Respiratory: Negative for shortness of breath, cough, wheezing, and pleuritic chest pain, Abdomen/GI: Negative for abdominal pain, nausea, vomiting, diarrhea, and constipation, Back: Negative for injury and pain, : Negative for injury, bleeding, discharge, and swelling, Skin: Negative for injury, rash, and discoloration, Neuro: Negative for headache, weakness, numbness, tingling, and seizure, Psych: Negative for depression, anxiety, suicide ideation, homicidal ideation, and hallucinations, Allergy/Immunology: Negative for hives, rash, and allergies, Endocrine: Negative for neck swelling, polydipsia, polyuria, polyphagia, and marked weight changes, Hematologic/Lymphatic: Negative for swollen nodes, abnormal bleeding, and unusual bruising. 00:47 MS/extremity: Positive for injury or acute deformity, decreased range of motion, pain, of the arch of right foot and heel of right foot. Exam: 00:47 Constitutional: This is a well developed, well nourished patient who is awake, alert, dipak and in no acute distress. Head/Face: Normocephalic, atraumatic. Eyes: Pupils equal round and reactive to light, extra-ocular motions intact. Lids and lashes normal. Conjunctiva and sclera are non-icteric and not injected. Cornea within normal limits. Periorbital areas with no swelling, redness, or edema. ENT: Nares patent. No nasal discharge, no septal abnormalities noted. Tympanic membranes are normal and external auditory canals are clear. Oropharynx with no redness, swelling, or masses, exudates, or evidence of obstruction, uvula midline. Mucous membranes moist. Neck: Trachea midline, no thyromegaly or masses palpated, and no cervical lymphadenopathy. Supple, full range of motion without nuchal rigidity, or vertebral point tenderness. No Meningismus. Chest/axilla: Normal chest wall appearance and motion. Nontender with no deformity. No lesions are appreciated. Cardiovascular: Regular rate and rhythm with a normal S1 and S2. No gallops, murmurs, or rubs. Normal PMI, no JVD. No pulse deficits. Respiratory: Lungs have equal breath sounds bilaterally, clear to auscultation and percussion. No rales, rhonchi or wheezes noted. No increased work of breathing, no retractions or nasal flaring. Abdomen/GI: Soft, non-tender, with normal bowel sounds. No distension or tympany. No guarding or rebound. No evidence of tenderness throughout. Back: No spinal tenderness. No costovertebral tenderness. Full range of motion. Pelvic Exam: Normal external genitalia. Speculum exam with closed cervical os, no discharge or bleeding noted. Bimanual exam with normal adnexa, no adnexal or cervical motion tenderness. Normal uterus. Skin: Warm, dry with normal turgor. Normal color with no rashes, no lesions, and no evidence of cellulitis. Neuro: Awake and alert, GCS 15, oriented to person, place, time, and situation. Cranial nerves II-XII grossly intact. Motor strength 5/5 in all extremities. Sensory grossly intact. Cerebellar exam normal. Normal gait. Psych: Awake, alert, with orientation to person, place and time. Behavior, mood, and affect are within normal limits. 00:47 Musculoskeletal/extremity: Circulation is intact in all extremities. Sensation intact. Compartment Syndrome exam of affected extremity: is normal. Joints: pain at rest, painful range of motion, swelling, tenderness. Vital Signs: 00:16 BP 122 / 84; Pulse 82; Resp 19 S; Temp 98.2(TE); Pulse Ox 97% on R/A; Weight 117.93 kg jd3 (R); Height 5 ft. 7 in. (170.18 cm) (R); Pain 10/10; 02:40 BP 134 / 86; Pulse 85; Resp 17 S; Pulse Ox 100% on R/A; Pain 3/10; jd3 00:16 Body Mass Index 40.72 (117.93 kg, 170.18 cm) jd3 Procedures: 02:42 Splinting: using Orthoglass splint, applied by myself. nurse. Examined by me, post [facility] splint application: neurovascular intact, 2+ distal pulses palpable, brisk capillary refill noted, Patient tolerated well, xeroform gauze to lateral incision . MDM: 00:20 Patient medically screened. [facility] 00:50 Data reviewed: vital signs, nurses notes, lab test result(s), radiologic studies, plain dipak films. 09/17 00:43 Order name: CBC with Diff [facility] 09/17 00:43 Order name: Comprehensive Metabolic Panel [facility] 09/17 00:46 Order name: Foot Right 3 View XRAY [facility] 09/17 01:42 Order name: Comprehensive Metabolic Panel; Complete Time: 01:59 EDMS 09/17 01:49 Order name: CBC with Automated Diff; Complete Time: 01:59 EDMS Administered Medications: 01:22 Drug: Zofran 4 mg Route: IVP; Site: right antecubital; jd3 02:20 Follow up: Response: No adverse reaction jd3 01:23 Drug: TORadol 30 mg Route: IVP; Site: right antecubital; jd3 02:20 Follow up: Response: No adverse reaction jd3 01:23 Drug: Dilaudid 0.5 mg Route: IVP; Site: right antecubital; jd3 02:20 Follow up: Response: No adverse reaction; RASS: Alert and Calm (0) jd3 02:39 Drug: Dilaudid 0.5 mg Route: IVP; Site: right antecubital; jd3 03:20 Follow up: Response: No adverse reaction; RASS: Alert and Calm (0) jd3 02:55 Drug: Dilaudid 0.5 mg Route: IVP; Site: right antecubital; jd3 03:21 Follow up: Response: No adverse reaction; RASS: Alert and Calm (0) jd3 02:55 Drug: Zofran 4 mg Route: IVP; Site: right antecubital; jd3 03:21 Follow up: Response: No adverse reaction jd3 02:55 Drug: Valium 5 mg Route: PO; jd3 03:22 Follow up: Response: No adverse reaction jd3 Disposition: 09/17/19 02:44 Discharged to Home. Impression: Pain in left ankle and joints of left foot - sp foot/achilles surgery. - Condition is Stable. - Discharge Instructions: Joint Pain, Cryotherapy, Yddb-no-Yimx, Ankle Pain, Joint Pain, Xhrc-ca-Kois. - Prescriptions for Ibuprofen 600 mg Oral Tablet - take 1 tablet by ORAL route every 6 hours As needed take with food; 2 tablet. Valium 5 mg Oral Tablet - take 1 tablet by ORAL route every 8 hours As needed; 15 tablet. - Medication Reconciliation Form, Thank You Letter, Antibiotic Education, Prescription Opioid Use, Family Work Release form. - Follow up: Private Physician; When: 2 - 3 days; Reason: Recheck today's complaints, Continuance of care, Re-evaluation by your physician. - Problem is new. - Symptoms have improved. Signatures: Dispatcher [employer] Jl Mancini MD MD cha Davies, Jonathon, RN RN jd3 Corrections: (The following items were deleted from the chart) 03:23 02:44 09/17/2019 02:44 Discharged to Home. Impression: Pain in left ankle and joints of jd3 left foot - sp foot/achilles surgery. Condition is Stable. Discharge Instructions: Joint Pain, Ankle Pain, Joint Pain, Kevp-zp-Dcvh, Cryotherapy, Cfhj-lv-Bgka. Prescriptions for Ibuprofen 600 mg Oral Tablet - take 1 tablet by ORAL route every 6 hours As needed take with food; 2 tablet, Valium 5 mg Oral Tablet - take 1 tablet by ORAL route every 8 hours As needed; 15 tablet. and Forms are Medication Reconciliation Form, Thank You Letter, Antibiotic Education, Prescription Opioid Use. Follow up: Private Physician; When: 2 - 3 days; Reason: Recheck today's complaints, Continuance of care, Re-evaluation by your physician. Problem is new. Symptoms have improved. dipak
[2019-09-17] MEDS ORDERED: DIAZEPAM 5 MG TABLET ONE (02:50)
[2019-09-17 05:54] VITALS: TEMP 98.2
[2019-09-17 05:55] VITALS: BP 134/86; O2SAT 100
--- NOTE | 2019-09-17 08:45 | RAD REPORT ---
EXAM DESCRIPTION: RAD - Foot Right 3 View - 09/17/2019 1:52 am CLINICAL HISTORY: PAIN, recent Achilles surgery with uncontrollable pain level COMPARISON: No comparisons FINDINGS: No fracture, dislocation or periosteal reaction. No acute or destructive bone process seen . Minimal plantar spur is present. Several calcific or hyperdense foci air seen posterior to the calc aneus. A few punctate hyperdensities are seen along the posterosuperior margin of the calcaneus. Thic kening/ edema of the soft tissues around the calcaneus and medial ankle noted. These findings are not outside of normal range for surgery. No history as to what procedure was performed. IMPRESSION: Edema around the calcaneus and ankle present not unexpected for recent surgery. Multiple punctate hyperdensities are present along the posterior margin of the calcaneus and posteros uperior margin of the calcaneus. Etiology is not certain in the absence of surgical procedure history . These may well be within normal range for the surgery performed.
== END 2019-09-17 03:23 | disposition home or self-care (01) ==
LOC: ER 23:38
PROC: 2W3RX1Z Immobilization of Left Lower Leg using Splint (ICD-10-PCS; principal; 2019-09-17)
DX: M25.572 Pain in left ankle and joints of left foot (principal); Z98.890 Other specified postprocedural states; Z88.0 Allergy status to penicillin
CPT/HCPCS: 85025; 36415; 80053; 73630; 96375; 96374; 99284; 29515; J1170 ×3; J2405 ×2

== ENCOUNTER 2022-12-03 19:55 | Emergency (ER) | payer SELFPAY ==
--- OUTSIDE RECORDS SUMMARY | 2022-12-03 19:58 | XMS REPORT | Continuity of Care Document ---
:[address] [facility] t Address [address] [place] [address] [address] [place] [address] Care Team Providers Name Role Phone Alicja PADGETT, Darion Segura Primary Care Physician Candido Santo Attending Clinician Unavailable DR KENNY MONGE Attending Clinician Unavailable TON SANDOVAL Attending Clinician Unavailable Physician, No Primary Care Admitting Clinician Unavailable DR KENNY MONGE Admitting Clinician Unavailable Physician, No Primary or Family Admitting Clinician Unavaila ble Payers Payer Name Policy Type Policy Number Effective Date Expiration Date S ource Problems Condition Condition Condition Status Onset Resolution Last Treating Co mments Source Name Details Category Date Date Treatment Clinician Date Hypertroph Hypertroph Disease Active 2019-0 [facility] ic scar of [facility] skin skin 00:00: Hospita 00 l Allergies, Adverse Reactions, Alerts Allergy Allergy Status Severity Reaction(s) Onset Inactive Treating Comm ents Source Name Type Date Date Clinician Penicill Propensi Active Hives 2020-0 [facility] ins ty to 6-[facility] adverse 00:00: Hospita reaction 00 l s to drug tramadol DA Active SV 2020-0 [facility] 2[facility]17 [place] [facility] tramadol DA Active SV headaches 2019-0 [facility] 2-17 [place] 00:00[facility] Penicill DA Active SV 2019-0 [facility] ins 1-24 [place] 00:[facility] Penicill DA Active SV Rash, hives [facility] ins 08-19 [place] 00:[facility] Penicill DA Active SV 2018- [facility] ins 12-16 [place] 00:[facility] Penicill DA Active SV Rash, hives [facility] ins 12-16 [place] 00:00[facility] Penicill DA Active Unknown Hives [facility] Social History Social Habit Start Date Stop Date Quantity Comments Source [facility] Tobacco use and 2020-01-24 2020-01-24 Smokeless tobacco [facility] exposure [facility]00 [facility]-user [facility] Alcohol intake 2020-01-24 2020-01-24 Current drinker of [facility] 00:00:00 00:00:00 alcohol (finding) Hospita l History of Social 2020-01-24 2020-01-[address] function 00:00:00 00:00:00 Hospital Alcohol Comment 2020-01-24 2020-01-[address] 00:00:00 00[facility]00[facility]00 [facility] Sex [facility] At [birth year] [facility] Smoking Status Start Date Stop Date Source Never smoked tobacco [facility] Medications This patient has no known medications. Vital Signs Vital Name Observation Time Observation Value Comments Source Height 2020-07-26 04:11:00 167.64 CM Weight 2020-07-26 04:11:00 119.29 KG Weight 2020-07-25 10:21:00 127 KG Height 2020-07-25 10:21:00 167.64 CM Height 2020-03-16 04:17:00 167.64 CM Weight 2020-03-16 04:17:00 126.55 KG Height 2020-03-13 11:55:00 167.64 CM Weight 2020-03-13 11:55:00 122.46 KG Procedures Procedure Date / Time Performed Performing Clinician Giuliana zimmer REATTACH RT LOWER LEG 2020-07-26 00:00:00 [facility] REPAIR RIGHT LOWER LEG 2020-03-16 00:00:00 Nicky [facility]acy [facility] T[facility]ON OPEN [facility] Plan of Care Planned Activity Planned Date Details Comments Source Future Scheduled 2022-10-26 COVID-[address] [facility] Test 19:24:09 (#1) [code = COVID-19 VACCINE (#1)] Future Scheduled 2022-10-26 [facility]atitis C [facility] Test 19:24:09 screening (procedure) [code = 738040857] Future Scheduled 2022-10-26 [facility]ening for [facility] Test 19:24:09 malignant neoplasm of cervix (procedure) [code = 914398153] Future Scheduled 2022-10-26 BREAST CANCER [facility] Test 19:24:09 SCREENING [code = BREAST CANCER SCREENING] Future Scheduled 2022-10-26 INFLUENZA VACCINE [facility] Test 19:24:09 [code = INFLUENZA VACCINE] Encounters Start End Encounter Admission Attending Care Care Encounter Source Date/Time Date/Time Type Type Clinicians Facility Department ID 2019-09-15 Inpatient TARYN SilvaTO SURG [id number] [facility] 16:15:00 Candido [place] [facility] 2020-07-26 2020-07-26 Outpatient Petty MONGE [facility] [id number] 04:03:00 07:49:00 KENNY [facility] 2020-03-16 2020-03-16 Outpatient Petty MONGE [facility] [id number] 04:04:00 07:50:00 KENNY [facility] 2020-01-24 2020-01-24 Outpatient [facility] [id number] [address] [place] [address] 00:00:00 00:00:00 TON [address] [facility] 2019-09-07 2019-09-07 Outpatient TARYN SantoTO RADI [id number] [facility] 18:15:00 18:15:00 Candido [id number] [place] [facility] 2019-08-19 2019-08-19 Outpatient TARYN SantoTO RADI [id number] [facility] 14:00:00 14:00:00 Candido [id number] [place] [facility] Results Test Description Test Time Test Comments Results Result [facility] e Comments - MRI LW JNT W/O 2019-09-08 Patient Name: CONT RT 09:45:00 NATE FRIAS Unit No: [id number] EXAMS: CPT CODE: [id number] MRI LW JNT W/[place] [id number] MRI OF THE RIGHT ANKLE DIAGNOSIS: 1. [...] MD Technologist: Denia Xiong, RT(R) Transcribed D/ (5411) [facility] NAME: NATE FRIAS [address] [place] [address] PHYS: Candido Duran MD : 1980 AGE: 39 SEX: F [place], [place] [address] LOC: Y.MRI PHONE #: [phone] EXAM DATE: 09/07/2019 STATUS: DEP CLI FAX #: [phone] RAD #: D/C DT PAGE 1 Signed Report Patient Name: NATE FRIAS Unit No: [id number] EXAMS: CPT CODE: [id number] MRI LW JNT W/[place] [address] (Continued) Orig Print D/T: S: 09/08/2019 (0948) [facility] NAME: NATE FRIAS [address] [place] [address] PHYS: Candido Duran MD : 1980 AGE: 39 SEX: F [place] [address] LOC: Y.MRI PHONE #: [phone] EXAM DATE: 09/07/2019 STATUS: DEP CLI FAX #: [phone] RAD #: D/C DT PAGE 2 Signed Report - XR FLUORO NDL 2019-08-22 Patient Name: 09:56:00 NATE FRIAS Unit No: [id number] EXAMS: CPT CODE: [id number] XR FLUORO NDL 85199 FLUOROSCOPICALLY GUIDED INJECTION OF THE RIGHT PLANTAR [...] Technologist: Thuy Osborn RT.(R) Transcribed D/ (0956) t.SDR.[facility] NAME: NATE FRIAS [address] [facility] PHYS: Candido Duran MD : 1980 AGE: 39 SEX: F [place] [address] LOC: Y.RAD PHONE #: [phone] EXAM DATE: 08/19/2019 STATUS: DEP CLI FAX #: [phone] RAD #: D/C DT PAGE 1 Signed Report Patient Name: NATE FRIAS Unit No: [id number] EXAMS: CPT CODE: [id number] XR FLUORO NDL 39623 (Continued) Orig Print D/T: S: 08/22/2019 (0959) [facility] NAME: NATE FRIAS [address] [place] [address] PHYS: BENOIT Candido Kay MD : 1980 AGE: 39 SEX: F [place] [address] LOC: Y.RAD PHONE #: [phone] EXAM DATE: 08/19/2019 STATUS: DEP CLI FAX #: [phone] RAD #: D/C DT PAGE 2 Signed Report - XR FLUORO NDL 2018-12-17 Patient Name: 11:55:00 NATE FRIAS Unit No: [id number] EXAMS: CPT CODE: [id number] XR FLUORO NDL 59981 FLUOROSCOPICALLY GUIDED INJECTION OF THE RIGHT PLANTAR [...] injected. No immediate complications were encountered. at 1155 Reported and signed by: Elvis Verma MD CC: Candido Santo MD Technologist: Thuy Osborn RT.(R) Transcribed D/ (9707) tASPEN [facility] NAME: NATE FRIAS [facility] PHYS: Candido Duran : 1980 AGE: 38 SEX: F [place] [address] LOC: Y.RAD PHONE #: [phone] EXAM DATE: 12/16/2018 STATUS: DEP CLI FAX #: [phone] RAD #: D/C DT PAGE 1 Signed Report Patient Name: NATE FRIAS Unit No: [id number] EXAMS: CPT CODE: [id number] XR FLUORO NDL 82652 (Continued) Orig Print D/T: S: 12/17/2018 (1158) [facility] NAME: NATE FRIAS [address] [facility] PHYS: Candido Duran : 1980 AGE: 38 SEX: F [place], [place] [address] LOC: Y.RAD PHONE #: [phone] EXAM DATE: 12/16/2018 STATUS: DEP CLI FAX #: [phone] RAD #: D/C DT PAGE 2 Signed Report - MRI LW JNT W/O 2018-12-17 Patient Name: CONT RT 07:59:00 NATE FRIAS Unit No: [id number] EXAMS: CPT CODE: [id number] MRI LW JNT W/[place] [address] TECHNIQUE: Multiplanar multisequence MR images through the [...] Prominent subcutaneous edema about the ankle. at 0750 Reported and signed by: Shyam Agosto M.D. CC: Candido Santo MD Technologist: FARHEEN ROSS. RT(R) Transcribed D/ (0751) t.SDR.SLJ [facility] NAME: NATE FRIAS [address] [facility] PHYS: Candido Duran : 1980 AGE: 38 SEX: F [place], [place] [address] LOC: Y.RAD PHONE #: [phone] EXAM DATE: 12/16/2018 STATUS: MACEY CLI FAX #: [phone] RAD #: D/C DT PAGE 1 Signed Report Patient Name: NATE FRIAS Unit No: [id number] EXAMS: CPT CODE: [id number] MRI LW JNT W/[place] [id number] (Continued) Orig Print D/T: S: 12/17/2018 (0802) [facility] NAME: NATE FRIAS [address] [facility] PHYS: Candido Duran : 1980 AGE: 38 SEX: F [place] [id number] LOC: Y.RAD PHONE #: [phone] EXAM DATE: 12/16/2018 STATUS: MACEY FUNK FAX #: [phone] RAD #: D/C DT PAGE 2 Signed Report
[2022-12-03 20:59] LABS: Specific Gravity 1.022 (1.005-1.030); Urine Bacteria <20 /HPF (<20); Urine Bilirubin NEGATIVE (Negative); Urine Blood Negative (Negative); Urine Clarity Turbid (Clear); Urine Color Light-Yellow (Yellow); Urine Glucose NEGATIVE (Negative); Urine Mucus Slight /HPF (None Seen); Urine Protein NEGATIVE (Negative); Urine RBC 21-50 /HPF (None Seen); Urine Urobilinogen Normal (Normal); Urine pH 5.5 (5.0-7.0)
[2022-12-03 21:04] LABS: Hematocrit 43.1 % (36.0-45.0); Lymphocytes % 25.6 % (15.3-44.8); MCV 93.8 fL (80-100); MPV 7.1 fL (7.6-11.3)
[2022-12-03 21:12] LABS: Specific Gravity 1.022 (1.005-1.030)
[2022-12-03 21:24] LABS: Albumin 3.3 g/dL (3.4-5.0); Bilirubin Total 0.3 mg/dL (0.2-1.0); Potassium 3.8 mEq/L (3.5-5.1)
[2022-12-03] MEDS ORDERED: MORPHINE 4 MG/ML SYR ONE (21:58)
[2022-12-03] MEDS ORDERED: ONDANSETRON 4 MG/2 ML VIAL ONE (21:58)
--- NOTE | 2022-12-03 22:26 | RAD REPORT ---
EXAM DESCRIPTION: CTAbdomen Pelvis W Contrast - 12/03/2022 10:19 pm CLINICAL HISTORY: Abdominal pain. lower abdomen pain COMPARISON: <Comparisons> TECHNIQUE: Biphasic CT imaging of the abdomen and pelvis was performed with 100 ml non-ionic IV cont rast. All CT scans are performed using dose optimization technique as appropriate and may include automated exposure control or mA/KV adjustment according to patient size. FINDINGS: The lung bases are clear.Cholecystectomy. The liver, spleen, pancreas, adrenal glands and kidneys are within normal limits. No bowel obstruction, free air, free fluid or abscess. Moderate stool throughout the colon. Appendect delio. No evidence of significant lymphadenopathy. No suspicious bony findings. IMPRESSION: No acute intra-abdominal or pelvic finding. Moderate stool retained throughout the colon.
[2022-12-03] MEDS ORDERED: FENTANYL CITR 100 MCG/2 ML ONE (23:53)
[2022-12-04] MEDS ORDERED: CEFTRIAXONE 1000 MG/VIAL ONE (00:13)
[2022-12-04] MEDS ORDERED: METRONIDAZOLE 500mg IVPB 500 MG/100 ML BAG IV ONE (00:13)
[2022-12-04] MEDS ORDERED: AZITHROMYCIN 1 GM PACKET ONE (00:13)
[2022-12-04] MEDS ORDERED: HYDROMORPHONE HCL 1 MG/ML INJ ONE (01:19)
--- NOTE | 2022-12-04 01:28 | EDPHYS ---
Physician Documentation [facility] Name: Kaley Dobson Age: 42 yrs Sex: Female : 1980 Arrival Date: 12/03/2022 Time: 19:55 Bed 13 Private MD: ED Physician Jl Zendejas HPI: 12/03 21:00 This 42 yrs old Female presents to ER via Ambulatory with complaints of Abdominal Pain, cp Fever. 21:00 The patient presents with abdominal pain in the lower abdomen, pelvic area. Onset: The cp symptoms/episode began/occurred about 1 week ago. The symptoms do not radiate. Associated signs and symptoms: Pertinent positives: vaginal discharge, pain and swelling of external genitalia, Pertinent negatives: blood in stools, chest pain, constipation, diarrhea, dysuria, vaginal bleeding. The symptoms are described as constant. Severity of pain: in the emergency department the pain is unchanged despite home interventions. Patient reports history of trichomonas infection in the past and recent separation from . Has treating vaginal discharge with oral Diflucan over the past 5 days, but symptoms have worsened. 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 - Social history:: Smoking status: Patient reports the use of cigarette tobacco products, smokes one-half pack cigarettes per day. ROS: 21:10 Constitutional: Negative for body aches, chills, fever, poor PO intake. cp 21:10 Eyes: Negative for injury, pain, redness, and discharge. cp 21:10 ENT: Negative for drainage from ear(s), ear pain, sore throat, difficulty swallowing, difficulty handling secretions. 21:10 Cardiovascular: Negative for chest pain, edema, palpitations. 21:10 Respiratory: Negative for cough, shortness of breath, wheezing. 21:10 Abdomen/GI: Positive for abdominal pain, nausea, Negative for vomiting, diarrhea, constipation. 21:10 : Positive for pelvic pain, vaginal discharge, Negative for urinary symptoms, vaginal bleeding. 21:10 Skin: Negative for rash. 21:10 Neuro: Negative for altered mental status, dizziness, headache, weakness. 21:10 All other systems are negative. Exam: 21:15 Constitutional: The patient appears in no acute distress, alert, awake, non-toxic, well cp developed, well nourished, uncomfortable. 21:15 Head/Face: Normocephalic, atraumatic. cp 21:15 Eyes: Periorbital structures: appear normal, Conjunctiva: normal, no exudate, no injection, Sclera: no appreciated abnormality, Lids and lashes: appear normal, bilaterally. 21:15 ENT: External ear(s): are unremarkable, Nose: is normal, Mouth: Lips: moist, Oral mucosa: pink and intact, moist, Posterior pharynx: is normal, airway is patent, no erythema, no exudate. 21:15 Chest/axilla: Inspection: normal, Palpation: is normal, no crepitus, no tenderness. 21:15 Cardiovascular: Rate: normal, Rhythm: regular. 21:15 Respiratory: the patient does not display signs of respiratory distress, Respirations: normal, no use of accessory muscles, no retractions, labored breathing, is not present, Breath sounds: are clear throughout, no decreased breath sounds, no stridor, no wheezing. 21:15 Abdomen/GI: Inspection: abdomen appears normal, Bowel sounds: active, all quadrants, Palpation: soft, in all quadrants, severe abdominal tenderness, in the suprapubic area, right lower quadrant and left lower quadrant, rebound tenderness, is not appreciated, voluntary guarding, is elicited in the suprapubic area, right lower quadrant and left lower quadrant. 21:15 Back: pain, is absent, ROM is normal. 12/04 00:30 : Pelvic Exam: External exam: erythema is noted, swelling of external genitalia, no cp appreciated Bartholin's cyst, Speculum exam: no bleeding is noted, no cervicitis, os that is closed, bimanual exam reveals cervical motion tenderness, uterine tenderness, right adnexal tenderness, left adnexal tenderness, no adnexal mass on right, no adnexal mass on left, discharge, green, the nurse was present for the exam, Sexual behavior: the patient is sexually active. 00:30 Skin: cellulitis, is not appreciated, no rash present. cp Vital Signs: 12/03 20:02 BP 142 / 90; Pulse 80; Resp 18 S; Temp 98.9(O); Pulse Ox 98% on R/A; Weight 95.25 kg as6 (R); Height 5 ft. 7 in. (R); Pain 05/05; 22:01 BP 112 / 64; Pulse 79; Resp 20; Pulse Ox 97% on R/A; mb9 12/04 00:54 BP 110 / 77; Pulse 72; Resp 18 S; Pulse Ox 95% on R/A; as6 01:38 BP 122 / 83; Pulse 64; Resp 18 S; Pulse Ox 97% on R/A; as6 12/03 20:02 Body Mass Index 32.89 (95.25 kg, 170.18 cm) as6 12/03 20:02 Pain Scale: Adult as6 MDM: 12/03 20:09 Patient medically screened. cp 12/04 01:27 Data reviewed: vital signs, nurses notes, lab test result(s), radiologic studies, CT cp scan. 01:27 Differential diagnosis: appendicitis, Endometriosis, non-specific abd pain, cp Pyelonephritis, Ureterolithiasis, urinary tract infection, PID. I considered the following discharge prescriptions or medication management in the emergency department Medications were administered in the Emergency Department. See MAR. Test considered but Not performed: Ultrasound transvaginal. Counseling: I had a detailed discussion with the patient and/or guardian regarding: the historical points, exam findings, and any diagnostic results supporting the discharge/admit diagnosis, lab results, radiology results, the need for outpatient follow up, an OB/Gyne specialist, to return to the emergency department if symptoms worsen or persist or if there are any questions or concerns that arise at home. Response to treatment: the patient's symptoms have markedly improved after treatment, and as a result, I will discharge patient. 12/03 20:28 Order name: CBC with Diff; Complete Time: 22:36 cp 12/03 20:28 Order name: CMP; Complete Time: 22:36 cp 12/03 20:28 Order name: Lipase; Complete Time: 22:36 cp 12/03 20:28 Order name: Test, Urine; Complete Time: 22:36 cp 12/03 20:28 Order name: Urinalysis w/ reflexes; Complete Time: 22:36 cp 12/03 20:29 Order name: GC (GONORR/CHLAMYDIA) Probe cp 12/03 20:29 Order name: Wet Prep; Complete Time: 01:26 cp 12/03 21:14 Order name: Urine Culture EDMS 12/03 20:28 Order name: CT Abd/Pelvis - IV Contrast Only; Complete Time: 22:36 cp 12/03 22:36 Interpretation: Report reviewed. 12/03 20:28 Order name: IV Saline Lock; Complete Time: 20:52 cp 12/03 20:28 Order name: Labs collected and sent; Complete Time: 20:52 cp 12/03 20:29 Order name: Pelvic Exam Setup; Complete Time: 20:54 cp Administered Medications: 12/03 20:49 Drug: NS 0.9% IV 1000 ml Route: IV; Rate: 1 bolus; Site: right antecubital; [facility] 12/04 01:39 Follow up: Response: No adverse reaction; IV Status: Completed infusion; IV Intake: as6 1000ml 12/03 20:52 Drug: Ketorolac IVP 15 mg Route: IVP; Site: right antecubital; 9 21:17 Follow up: Response: No adverse reaction 9 21:54 Drug: Ondansetron IVP 4 mg Route: IVP; Site: right antecubital; 12/04 01:39 Follow up: Response: No adverse reaction as6 12/03 21:56 Drug: morphine IVP or IV 4 mg Route: IVP; Infused Over: 4 mins; Site: right antecubital;9 12/04 01:39 Follow up: Response: No adverse reaction as6 12/03 23:55 Drug: fentaNYL (PF) IVP 25 mcg Route: IVP; Site: right antecubital; 12/04 01:39 Follow up: Response: No adverse reaction as6 00:14 Drug: Rocephin - Rocephin (cefTRIAXone) IVPB 1 grams Route: IVPB; Infused Over: 30 mb9 mins; Site: right antecubital; 01:40 Follow up: Response: No adverse reaction; IV Status: Completed infusion; IV Intake: [id number] 00:14 Drug: AZITHromycin PO 1 grams Route: PO; mb9 01:40 Follow up: Response: No adverse reaction as6 00:46 Drug: metroNIDAZOLE IVPB 500 mg Volume: 100 ml; Route: IVPB; Infused Over: 30 mins; as6 Site: right antecubital; 01:40 Follow up: Response: No adverse reaction; IV Status: Completed infusion; IV Intake: as6 100ml 01:16 Drug: HYDROmorphone IVP 1 mg Route: IVP; Site: right antecubital; as6 01:39 Follow up: Response: No adverse reaction as6 01:58 Drug: Hydrocodone-Acetaminophen PO (7.5 mg-325 mg) 1 tabs Route: PO; as6 01:58 Follow up: Response: No adverse reaction as6 Disposition Summary: 12/04/22 01:27 Discharge Ordered Location: Home cp Problem: new cp Symptoms: have improved cp Condition: Stable cp Diagnosis - Female pelvic inflammatory disease, unspecified cp Followup: cp - With: Private Physician - When: 1 week - Reason: Recheck today's complaints Discharge Instructions: - Discharge Summary Sheet cp - Pelvic Inflammatory Disease cp - Pelvic Pain, Female cp Forms: - Medication Reconciliation Form cp - Thank You Letter cp - Antibiotic Education cp - Prescription Opioid Use cp Prescriptions: - acetaminophen-codeine 300-30 mg Oral tablet - take 2 tablet by ORAL route every 8 hours; 12 tablet; Refills: 0, Product cp Selection Permitted - Doxycycline Hyclate 100 mg Oral Tablet - take 1 tablet by ORAL route every 12 hours; 20 tablet; Refills: 0, Product cp Selection Permitted - Metronidazole 500 mg Oral Tablet - take 1 tablet by ORAL route every 8 hours; 30 tablet; Refills: 0, Product cp Selection Permitted - Diclofenac Sodium 75 mg Oral Tablet Sustained Release - take 1 tablet by ORAL route 2 times per day; 30 tablet; Refills: 0, Product cp Selection Permitted Signatures: Dispatcher [employer] Jl Simpson PA PA cp Slawson, Ashby RN RN as6 Makenzie Harris RN RN mb9
--- NOTE | 2022-12-04 01:28 | ER ---
Nurse's Notes [facility] Name: Kaley Dobson Age: 42 yrs Sex: Female : 1980 Arrival Date: 12/03/2022 Time: 19:55 Bed 13 Private MD: Diagnosis: Female pelvic inflammatory disease, unspecified Presentation: 12/03 20:02 Chief complaint: Patient states: "I think I have a really bad yeast infection. I am so as6 swollen I can hardly sit down. I have taken Diflucan and it's not getting better". Coronavirus screen: At this time, the client does not indicate any symptoms associated with coronavirus-19. Ebola Screen: No symptoms or risks identified at this time. Initial Sepsis Screen: Does the patient meet any 2 criteria? No. Patient's initial sepsis screen is negative. Does the patient have a suspected source of infection? No. Patient's initial sepsis screen is negative. Risk Assessment: Do you want to hurt yourself or someone else? Patient reports no desire to harm self or others. Onset of symptoms was November 28, 2022. 20:02 Acuity: JES 3 as6 20:02 Method Of Arrival: Ambulatory as6 Triage Assessment: 20:06 General: Appears uncomfortable, Behavior is cooperative, crying. Pain: Complains of as6 pain in pelvis. 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 - Social history:: Smoking status: Patient reports the use of cigarette tobacco products, smokes one-half pack cigarettes per day. Screenin:54 [facility] ED Fall Risk Assessment (Adult) History of falling in the last 3 months, mb9 including since admission No falls in past 3 months (0 pts) Confusion or Disorientation No (0 pts) Intoxicated or Sedated No (0 pts) Impaired Gait No (0 pts) Mobility Assist Device Used No (0 pt) Altered Elimination No (0 pt) Score/Fall Risk Level 0 - 2 = Low Risk Oriented to surroundings, Maintained a safe environment, Educated pt \\T\\ family on fall prevention, incl call for assistance when getting out of bed. Abuse screen: Denies threats or abuse. Nutritional screening: No deficits noted. Tuberculosis screening: No symptoms or risk factors identified. Assessment: 20:53 Neuro: Level of Consciousness is awake, alert, obeys commands, Oriented to person, mb9 place, time, situation, Appropriate for age. Cardiovascular: Patient's skin is warm and dry. Respiratory: Airway is patent Respiratory effort is even, unlabored, Respiratory pattern is regular, symmetrical. GI: Abdomen is round non-distended, Bowel sounds present X 4 quads. Abd is soft and non tender X 4 quads. : Vaginal discharge is Denies burning with urination. : Reports pain. EENT: No signs and/or symptoms were reported regarding the EENT system. Derm: Skin is pink, warm \\T\\ dry. Musculoskeletal: Range of motion: intact in all extremities. 23:00 Reassessment: No changes from previously documented assessment. Patient and/or family mb9 updated on plan of care and expected duration. Pain level reassessed. Patient is alert, oriented x 3, equal unlabored respirations, skin warm/dry/pink. 12/04 00:54 General: Behavior is crying, "can I have more pain medicine?" provider notified . as6 Vital Signs: 12/03 20:02 BP 142 / 90; Pulse 80; Resp 18 S; Temp 98.9(O); Pulse Ox 98% on R/A; Weight 95.25 kg as6 (R); Height 5 ft. 7 in. (R); Pain 10/10; 22:01 BP 112 / 64; Pulse 79; Resp 20; Pulse Ox 97% on R/A; mb9 12/04 00:54 BP 110 / 77; Pulse 72; Resp 18 S; Pulse Ox 95% on R/A; as6 01:38 BP 122 / 83; Pulse 64; Resp 18 S; Pulse Ox 97% on R/A; as6 12/03 20:02 Body Mass Index 32.89 (95.25 kg, 170.18 cm) as6 12/03 20:02 Pain Scale: Adult as6 ED Course: 12/03 19:58 Patient arrived in ED. mr 20:06 Triage completed. as6 20:07 Arm band placed on. as6 20:09 Jl Jean Baptiste PA is PHCP. cp 20:09 Jl Zendejas MD is Attending Physician. cp 20:32 Makenzie Harris, EJ is Primary Nurse. mb9 20:37 Test, Urine Sent. mb9 20:37 Urinalysis w/ reflexes Sent. mb9 20:52 CBC with Diff Sent. mb9 20:52 CMP Sent. mb9 20:53 Lipase Sent. mb9 20:54 Placed in gown. Bed in low position. Call light in reach. Side rails up X 1. Client mb9 placed on continuous cardiac and pulse oximetry monitoring. NIBP monitoring applied. 22:21 CT Abd/Pelvis - IV Contrast Only In Process Unspecified. EDMS 12/04 00:04 Assist provider with pelvic exam: Set up pelvic tray. Performed by Jl pritchett Specimens sent to lab. Patient tolerated well. 01:58 IV discontinued, intact, bleeding controlled, No redness/swelling at site. Pressure as6 dressing applied. Administered Medications: 12/03 20:49 Drug: NS 0.9% IV 1000 ml Route: IV; Rate: 1 bolus; Site: right antecubital; 9 12/04 01:39 Follow up: Response: No adverse reaction; IV Status: Completed infusion; IV Intake: as6 1000ml 12/03 20:52 Drug: Ketorolac IVP 15 mg Route: IVP; Site: right antecubital; mb9 21:17 Follow up: Response: No adverse reaction mb9 21:54 Drug: Ondansetron IVP 4 mg Route: IVP; Site: right antecubital; 9 12/04 01:39 Follow up: Response: No adverse reaction as6 12/03 21:56 Drug: morphine IVP or IV 4 mg Route: IVP; Infused Over: 4 mins; Site: right antecubital;mb9 12/04 01:39 Follow up: Response: No adverse reaction as6 12/03 23:55 Drug: fentaNYL (PF) IVP 25 mcg Route: IVP; Site: right antecubital; mb12/04 01:39 Follow up: Response: No adverse reaction as6 00:14 Drug: Rocephin - Rocephin (cefTRIAXone) IVPB 1 grams Route: IVPB; Infused Over: 30 mb9 mins; Site: right antecubital; 01:40 Follow up: Response: No adverse reaction; IV Status: Completed infusion; IV Intake: [id number] 00:14 Drug: AZITHromycin PO 1 grams Route: PO; mb9 01:40 Follow up: Response: No adverse reaction as6 00:46 Drug: metroNIDAZOLE IVPB 500 mg Volume: 100 ml; Route: IVPB; Infused Over: 30 mins; as6 Site: right antecubital; 01:40 Follow up: Response: No adverse reaction; IV Status: Completed infusion; IV Intake: as6 100ml 01:16 Drug: HYDROmorphone IVP 1 mg Route: IVP; Site: right antecubital; as6 01:39 Follow up: Response: No adverse reaction as6 01:58 Drug: Hydrocodone-Acetaminophen PO (7.5 mg-325 mg) 1 tabs Route: PO; as6 01:58 Follow up: Response: No adverse reaction as6 Medication: 12/03 20:54 VIS not applicable for this client. mb9 Intake: 12/04 01:39 IV: 1000ml; Total: 1000ml. as6 01:40 IV: 50ml; Total: 1050ml. as6 01:40 IV: 100ml; Total: 1150ml. as6 Outcome: 01:27 Discharge ordered by MD. cp 01:39 Discharged to home ambulatory, with family. as6 01:39 Condition: stable 01:58 Discharge instructions given to patient, Instructed on discharge instructions, follow as6 up and referral plans. medication usage, Demonstrated understanding of instructions, follow-up care, medications, Prescriptions given X 4. 01:58 Patient left the ED. as6 Signatures: Dispatcher [employer] Makenzie Merino Corey, PA PA cp Slawson, Ashby RN RN as6 Makenzie Harris, RN RN mb9
[2022-12-04] MEDS ORDERED: HYDROCODONE/APAP 7.5/325 MG TAB ONE (01:59)
[2022-12-04 02:19] VITALS: TEMP 98.9
[2022-12-04 02:25] VITALS: BP 122/83; O2SAT 97
[2022-12-08 19:06] LABS: C.trachomatis RNA,TMA Not Detected (Not Detected)
== END 2022-12-04 01:58 | disposition home or self-care (01) ==
LOC: ER 19:55
DX: N73.9 Female pelvic inflammatory disease, unspecified (principal)
CPT/HCPCS: 36415; 74177; 80053; 81001; 81025; 83690; 85025; 87086; 87088; 87210; 87490; 87590; 96361; 96365; 96375; 99284; J0696; J1170; J2405; J3010; Q9967

== ENCOUNTER 2022-12-18 16:15 | Emergency (ER) | payer SELFPAY ==
--- OUTSIDE RECORDS SUMMARY | 2022-12-18 16:18 | XMS REPORT | Continuity of Care Document ---
:1980 Author Organization [facility] t Address [address] [place] [address] [address] [place] [address] Care Team Providers Name Role Phone Darion Helm MD Primary Care Physician Candido Santo Attending Clinician [...] Hospita l tramadol DA Active SV headaches 2020-0 [facility] 2-17 [place] 00:00: Orthope 00 dic Hospita l Penicill DA Active SV 2020-0 [facility] ins 1-24 [place] 00:00: Orthope 00 dic Hosp[facility] Penicill DA Active SV Rash, hives 2020-0 [facility] ins 1-24 [place] 00:00: Orthope 00 dic Hospita l Penicill DA Active SV 2018- [facility] ins 12-16 [place] 00:00: Orthope 00 dic Hospita l Penicill DA Active SV Rash, hives 2018- [facility] ins 12-16 [place] 00:00: Orthope 00 dic Hospita l Penicill DA Active Unknown Hives [facility] [place] Social History Social Habit Start Date Stop Date Quantity Comments Source [facility] Alcohol intake 2020-01-24 2020-01-24 Current drink[facility] of [facility] 00:[facility]00 00:00:00 alcohol (finding) Hospita l History of Social 2020-01-24 2020-01-[address] function 00:00:00 00:00:00 Hospital Alcohol Comment 2020-01-24 2020-01-[address] 00:00[facility]00 [facility]00 Hospital Tobacco use and 2020-01-24 2020-01-24 Smokeless tobacco [facility] exposure 00:00:00 00:00:00 non-user Hospital Sex Assigned At [birth year] [facility] Smoking Status Start Date Stop Date Source Never smoked tobacco [facility] Medications This patient has no [...] Date / Time Performed Performing Clinician Giuliana VERA RT LOWER LEG 2020-07-26 00:00:00 Tom [facility] T[facility]ON OPN Center REPAIR RIGHT LOWER LEG 2020-03-16 00:00:00 Nicky lacy [facility] TENDON OPEN Center Plan of Care Planned Activity Planned Date Details Comments Source Future Scheduled 2022-10-26 COVID-[address] [facility] Test 19:24:09 (#1) [code = COVID-19 VACCINE (#1)] Future Scheduled 2022-10-26 Hepatitis C [facility] Test 19:24:09 screening (procedure) [code = 431945058] Future Scheduled 2022-10-26 [facility]ening for [facility] Test 19:24:09 malignant neoplasm of cervix (procedure) [code = 588897415] Future Scheduled 2022-10-26 BREAST CANCER [facility] Test 19:24:09 SCREENING [code = BREAST CANCER SCREENING] Future Scheduled 2022-10-26 INFLUENZA VACCINE [facility] 19:24:09 [code = INFLUENZA VACCINE] Future Scheduled 2022-10-26 COVID-[address] [facility] Test 19:24:09 (#1) [code = COVID-19 VACCINE (#1)] Future Scheduled 2022-10-26 [facility] 19:24:09 screening (procedure) [code = 261845894] Future Scheduled 2022-10-26 [facility] Test 19:24:09 malignant neoplasm of cervix (procedure) [code = 713280924] Future Scheduled 2022-10-26 BREAST CANCER [facility] Test 19:24:09 SCREENING [code = BREAST CANCER SCREENING] Future Scheduled 2022-10-26 [facility]ENZA [facility]ACCINE [facility] Test 19:24:09 [code = INFLUENZA VACCINE] Encounters Start End Encounter Admission Attending Care Care Encounter Source Date/Time Date/Time Type Type Clinicians Facility Department ID 2019-09-15 Inpatient DEO Silva SURG [id number] [facility] 16:15:[address] [place] [id number] [place] [address] [facility] 2020-07-26 2020-07-26 Outpatient Petty MONGE [facility] [id number] [place] 04:03:00 07:49:00 [facility] [place] 2020-03-16 2020-03-16 Outpatient Petty MONGE [facility] [id number] [place] 04:04:00 07:50:00 [facility] [place] 2020-01-24 2020-01-24 Outpatient [facility] [id number] [place] 00:00:00 00:00:[address] [place] [address] 2019-09-07 2019-09-07 Outpatient DEO Santo RADI [id number] [facility] 18:15:00 18:15:00 Candido [id number] [place] [facility] 2019-08-19 2019-08-19 Outpatient DEO Santo [id number] [facility] 14:00:00 14:00:00 Candido [id number] [place] [facility] Results Test Description Test Time Test Comments Results Result [facility] e Comments - MRI LW JNT W/O 2019-09-08 Patient Name: CONT RT 09:45:00 NATE FRIAS Unit No: [id number] EXAMS: CPT CODE: [id number] MRI LW JNT W/[place] [address] MRI OF THE RIGHT ANKLE DIAGNOSIS: 1. [...] MD Technologist: Denia Xiong, RT(R) Transcribed D/ (8745) [facility] NAME: NATE FRIAS [address] [facility] PHYS: Candido Duran MD : 1980 AGE: 39 SEX: F [place], [place] [address] LOC: Y.MRI PHONE #: [phone] EXAM DATE: 09/07/2019 STATUS: DEP CLI FAX #: [phone] RAD #: D/C DT PAGE 1 Signed Report Patient Name: NATE FRIAS Unit No: [id number] EXAMS: CPT CODE: [id number] MRI LW JNT W/[place] [address] (Continued) Orig Print D/T: S: 09/08/2019 (0948) [place] [facility] NAME: NATE FRIAS [address] [facility] PHYS: Candido Duran MD : 1980 AGE: 39 SEX: F [place], [place] [address] LOC: Y.MRI PHONE #: [phone] EXAM DATE: 09/07/2019 STATUS: DEP CLI FAX #: [phone] RAD #: D/C DT PAGE 2 Signed Report - XR FLUORO NDL 2019-08-22 Patient Name: 09:56:00 NATE FRIAS Unit No: [id number] EXAMS: CPT CODE: [id number] XR FLUORO NDL 19437 FLUOROSCOPICALLY GUIDED INJECTION OF THE RIGHT PLANTAR [...] Technologist: Thuy Osborn RT.(R) Transcribed D/ (0956) [facility] NAME: NATE FRIAS [address] [place] [address] PHYS: Candido Duran MD : 1980 AGE: 39 SEX: F [place] [address] LOC: Y.RAD PHONE #: [phone] EXAM DATE: 08/19/2019 STATUS: DEP CLI FAX #: [phone] RAD #: D/C DT PAGE 1 Signed Report Patient Name: NATE FRIAS Unit No: [id number] EXAMS: CPT CODE: [id number] XR FLUORO NDL 91300 (Continued) Orig Print D/T: S: 08/22/2019 (0959) [facility] NAME: NATE FRIAS [facility] PHYS: Candido Duran MD : 1980 AGE: 39 SEX: F [place] [address] LOC: Y.RAD PHONE #: [phone] EXAM DATE: 08/19/2019 STATUS: DEP CLI FAX #: [phone] RAD #: D/C DT PAGE 2 Signed Report - XR FLUORO NDL 2018-12-17 Patient Name: 11:55:00 NATE FRIAS Unit No: [id number] EXAMS: CPT CODE: [id number] XR FLUORO NDL 44818 FLUOROSCOPICALLY GUIDED INJECTION OF THE RIGHT PLANTAR [...] MD Technologist: Thuy Osborn RT.(R) Transcribed D/ (9651) Sung [facility] NAME: NATE FRIAS [facility] PHYS: Candido Duran : 1980 AGE: 38 SEX: F [place], [place] [address] LOC: Y.RAD PHONE #: [phone] EXAM DATE: 12/16/2018 STATUS: DEP CLI FAX #: [phone] RAD #: D/C DT PAGE 1 Signed Report Patient Name: NATE FRIAS Unit No: [id number] EXAMS: CPT CODE: [id number] XR FLUORO NDL 04253 (Continued) Orig Print D/T: S: 12/17/2018 (1158) [facility] NAME: NATE FRIAS [facility] PHYS: Candido Duran : 1980 AGE: 38 SEX: F [place] [address] LOC: Y.RAD PHONE #: [phone] EXAM DATE: 12/16/2018 STATUS: DEP CLI FAX #: [phone] RAD #: D/C DT PAGE 2 Signed Report - MRI LW JNT W/O 2018-12-17 Patient Name: CONT RT 07:59:00 NATE FRIAS Unit No: [id number] EXAMS: CPT CODE: [id number] MRI LW JNT W/[place] [address] TECHNIQUE: Multiplanar multisequence MR images through the [...] Technologist: FARHEEN ROSS. RT(R) Transcribed D/ (0759) t.BEATRIZ.[facility] NAME: NATE FRIAS [address] [place] [address] PHYS: Candido Duran Klaus : 1980 AGE: 38 SEX: F [place] [address] LOC: Y.RAD PHONE #: [phone] EXAM DATE: 12/16/2018 STATUS: DEP CLI FAX #: [phone] RAD #: D/C DT PAGE 1 Signed Report Patient Name: NATE FRIAS Unit No: [id number] EXAMS: CPT CODE: [id number] MRI LW JNT W/[place] [address] (Continued) Orig Print D/T: S: 12/17/2018 (0802) [facility] NAME: NATE FRIAS [facility] PHYS: Candido Duran : 1980 AGE: 38 SEX: F [place] [address] LOC: Y.RAD PHONE #: [phone] EXAM DATE: 12/16/2018 STATUS: DEP CLI FAX #: [phone] RAD #: D/C DT PAGE 2 Signed Report Notes Date/Time Note Provider Source 2019-09-15 15:26:00-00:00 [id number] [facility] [place] [address] PATIENT NAME: NATE FRIAS ADMIT DATE: 09/15/19 ACCOUNT NO: [id number] ROOM NO: AGE: 39 REPORT TYPE: OPERATIVE REPORT SEX: F ADMITTING PHYSICIAN: ATTENDING PHYSICIAN:Candido Santo MD OPERATION DATE: 09/15/2019 PREOPERATIVE DIAGNOSES: 1. Right plantar fasciitis. 2. Right distal tarsal tunnel syndrome. 3. Right Achilles tear. 4. Right calcaneal exostosis. 5. Right peroneal tendinopathy with tear. POSTOPERATIVE DIAGNOSES: 1. Right plantar fasciitis. 2. Right distal tarsal tunnel syndrome. 3. Right Achilles tear. 4. Right calcaneal exostosis. 5. Right peroneal tendinopathy with tear. PROCEDURES PERFORMED: 1. Right partial plantar fasciectomy. 2. Right distal tarsal tunnel release. 3. Right Achilles repair. 4. Right calcaneal exostectomy. 5. Right peroneal tenolysis. 6. Right peroneus brevis repair. SURGEON: Candido Santo M.D. AIR TANK ASSEMBLER: Candido Rojas M.D. ANESTHESIA: General plus local. ESTIMATED BLOOD LOSS: Minimal. SPECIMENS: None. COMPLICATIONS: None. DISPOSITION: The patient was taken to recovery r oom in stable condition and discharged to home with followup. INDICATIONS FOR THE OPERATION: The patient is a 39-year-old female with the aforementioned problems in her right hin dfoot that have become unresponsive to nonoperative management. She presents today elec tively for the aforementioned PATIENT NAME: NATE FRIAS ACCOUNT #: Y [id number] procedures. PROCEDURE IN DETAIL: After o btaining the proper informed consent and discussing risks and benefits of surger y, the patient was given preoperative antibiotics in the holding area. The correct leg was identified and signed. She was taken to the operating room and was placed under general anesthesia by the anesthesiologist without any complications. A to urniquet was placed onto her right thigh and she was placed onto the operatin g table in the prone position with her extremities and trunk well padd ed. Her right lower extremity was then prepped and draped in a sterile fashion. Leg was elevated, exsanguinated with an Esmarch, and the tourniquet was inflated to 3 00 mmHg. We made an incision over the peroneal tendons at the level of the di stal fibula extending just distally towards the sinus tarsi region. Full-th ickness flaps were created. All bleeding was controlled with electro cautery. Careful attention was made to protect any branches of the sural nerve. The per gatica tendons were then exposed. There was some tenosynovitis of the peroneus longus tendon, which was debrided. There were no tears seen in this tendo n. There was flattening and a longitudinal tear in the peroneus brevis tendon at the level of the distal fibula and towards the infer ior peroneal retinaculum, which was released after a tenolysis was performed to t he peroneus longus tendon. A low lying muscle belly was debrided at the peroneus brevis and the tear was then repaired with 2-0 PDS suture in a running fashion tubularizing the ten don. The tendons were then reduced into the retrofibular groove and the superior peroneal retinaculum was then repaired. The wound was irrigated and close d in the usual fashion in layers. Next, a longitudinal incision was made over the Achilles insertion site. Full-thickness flaps were created. A split was m bárbara in the Achilles tendon, which was then taken down of f the calcaneus. There were noted to be small tears at the insertion site, which were sharply debrided with a 15 blade scalpel. The rest of the tendon appeared healthy and there was still more than 75% of healthy tendon remaining. A Patsy's deformity was removed with a sagittal saw. There was also a posterior calcaneal spur, which was r emoved with a rongeur. All sharp edges were then smoothed with a reciprocat ing rasp. The retrocalcaneal bursa was sharply excised. The Achilles was then repaired back down to the calcaneus with the Arthrex SpeedBridge instrumen tation with a stable repair. The wound was irrigated. The split in the Achilles was repaired with 2-0 Vicryl suture. The wound was then closed in usual fashi on in layers. Next, a medial hindfoot oblique incision was the n made at the junction of the medial and plantar skin. Full-thickness flaps were created. The medial half of the plantar fascia was then sharply released wit h a 15 blade scalpel. We then released the deep and superficial fascia of the abductor fascia in order to release the first branch of the lateral plantar nerve. Once this was fully released, this wound was irrigated and closed in the usual fashion in layers. The wounds were then infiltrated with 30 mL of 0 .5% Marcaine plain and then sterilely dressed. She was placed into a well-pa dded posterior splint. The tourniquet was let down and the toes were well p erfused at that time. The patient tolerated procedure well. She was placed on her hospital bed and extubated without any complication. She was take n to recovery room in stable condition where she will be discharged home with followup. She will also be placed on aspirin for DVT prophylaxis. Dictated By: Candido Santo MD PATIENT NAME: NATE FRIAS ACCOUNT #: Y [id number] WT: OP:YKAMI/BLOHELEN/NTS Conf#: [id number]/DID#: [id number] Authenticated by Candido Santo MD On 0 07:15:23 AM Electronically Signed by Candido Santo MD on 0 09/16/19 at 0715 PATIENT NAME: NATE FRIAS ACCOUNT #: Y [id number] 2019-09-15 13:25:00-00:00 [facility] ([facility]) Brief Op Note REPORT#:[id number] REPORT STATUS: Signed DATE:09/15/19 TIME: 1325 PATIENT: NATE FRIAS UNIT #: [id number] ROOM/BED: : 80 AGE: 39 SEX: F ATTEND: Gualberto Santo MD ADM AUTHOR: Candido Santo MD * ALL edits or amendments must be made on the el ectronic/computer document * Op/Inv Proc Note - Brief Pre-procedure diagnosis: right Achilles tear right calc exostosis right peroneal tendon tear right PF/DTTS Post-procedure diagnosis: same as pre procedure dx Procedures performed: right Achilles repair right calc exostectomy right peroneal tenolysis, PB repair right PFR/DTTR Primary Surgeon: Gal Rock Star(s): Bob Findings: right PF/DTTS, Achilles tear, calc exostosis, pe roneal tendon tear Complications: none Estimated blood loss in ml's: 25 Specimens removed/altered: right calc exostosis Electronically Signed by Candido Santo MD on at 1509 RPT #:[id number] END OF REPORT
[2022-12-18] MEDS ORDERED: KETOROLAC 30 MG/ML INJ ONE (16:54)
[2022-12-18] MEDS ORDERED: ONDANSETRON 4 MG/2 ML VIAL ONE (16:54)
[2022-12-18] MEDS ORDERED: NA CHLORIDE 0.9% 1,000 ML ONE (16:54)
[2022-12-18 17:28] LABS: Absolute Lymphocytes (CBC) 3.4 K/uL (0.7-4.9); Hematocrit 46.8 % (36.0-45.0); Lymphocytes % 28.7 % (15.3-44.8); MCV 94.7 fL (80-100); MPV 7.4 fL (7.6-11.3); RBC Red Blood Cell Count 4.94 M/uL (3.86-4.86)
[2022-12-18 17:36] LABS: Specific Gravity 1.027 (1.005-1.030)
[2022-12-18 17:38] LABS: Albumin 3.9 g/dL (3.4-5.0); Bilirubin Total 0.6 mg/dL (0.2-1.0); Potassium 3.6 mEq/L (3.5-5.1); Protein, Total 7.8 g/dL (6.4-8.2)
[2022-12-18] MEDS ORDERED: MORPHINE 4 MG/ML SYR ONE (17:44)
[2022-12-18 17:51] LABS: Urine Bacteria None Seen /HPF (<20); Urine Bilirubin NEGATIVE (Negative); Urine Blood 3+ (OVER) (Negative); Urine Clarity Turbid (Clear); Urine Color Light-Brown (Yellow); Urine Glucose NEGATIVE (Negative); Urine Mucus 3+ /HPF (None Seen); Urine Protein TRACE (Negative); Urine RBC >50 /HPF (None Seen); Urine Urobilinogen Normal (Normal)
--- NOTE | 2022-12-18 18:28 | RAD REPORT ---
EXAM DESCRIPTION: CT - Abdomen Pelvis W Contrast - 12/18/2022 6:09 pm CLINICAL HISTORY: Abdominal pain COMPARISON: December 03, 2022 TECHNIQUE: Computed axial tomography of the abdomen pelvis was obtained. 100 cc Isovue-300 was admin istered intravenously. Oral contrast was not requested which limits evaluation of bowel and appendix All CT scans are performed using dose optimization technique as appropriate and may include automated exposure control or mA/KV adjustment according to patient size. FINDINGS: The liver, spleen, pancreas, adrenal and kidneys appear unremarkable. There is no evidence of diverticulitis. Hysterectomy. No adnexal mass Cholecystectomy. Appendectomy Moderate amount of stool within the colon Small umbilical hernia IMPRESSION: No acute abnormality is displayed.
--- NOTE | 2022-12-18 18:39 | ER ---
Nurse's Notes [facility] Name: Kaley Dobson Age: 42 yrs Sex: Female : 1980 Arrival Date: 12/18/2022 Time: 16:15 Bed 10 Private MD: Diagnosis: Lower abdominal pain, unspecified;UTI/ Urinary tract infection, site not specified Presentation: 12/18 16:22 Chief complaint: Patient states: Lower abdominal pain, urinating blood since lunch, nj1 getting worse. Dyuria. Coronavirus screen: Vaccine status: Patient reports being unvaccinated. Ebola Screen: Patient denies travel to an Ebola-affected area in the 21 days before illness onset. Initial Sepsis Screen: Does the patient meet any 2 criteria? No. Patient's initial sepsis screen is negative. Does the patient have a suspected source of infection? No. Patient's initial sepsis screen is negative. Risk Assessment: Do you want to hurt yourself or someone else? Patient reports no desire to harm self or others. Onset of symptoms was December 18, 2022. 16:22 Method Of Arrival: Ambulatory [facility] 16:22 Acuity: JES 3 nj1 Triage Assessment: 16:30 General: Appears distressed, uncomfortable, Behavior is cooperative, appropriate for bp age, anxious. Pain: Complains of pain in left lower quadrant and right lower quadrant. EENT: No deficits noted. Neuro: No deficits noted. Cardiovascular: No deficits noted. Respiratory: No deficits noted. GI: Reports lower abdominal pain. : Reports burning with urination, urgency. Derm: No deficits noted. Musculoskeletal: No deficits noted. Historical: - Allergies: 16:25 PENICILLINS; nj1 - PMHx: 16:25 None; nj1 - PSHx: 16:25 foot; Partial hysterectomy; nj1 - Immunization history:: Client reports having NOT received the Covid vaccine. - Social history:: Smoking status: Patient reports the use of cigarette tobacco products, smokes one-half pack cigarettes per day. Screenin:30 [facility] ED Fall Risk Assessment (Adult) History of falling in the last 3 months, bp including since admission No falls in past 3 months (0 pts). Abuse screen: Denies threats or abuse. Denies injuries from another. Nutritional screening: No deficits noted. Tuberculosis screening: No symptoms or risk factors identified. Assessment: 16:30 General: SEE TRIAGE NOTE. bp 18:57 Reassessment: PT DC HOME AMBULATORY WITH FAMILY. bp Vital Signs: 16:22 BP 139 / 104; Pulse 75; Resp 18; Temp 98.1(O); Pulse Ox 100% ; Weight 90.72 kg; Height nj1 5 ft. 7 in. ; Pain 10/10; 18:57 BP 127 / 95; Pulse 71; Resp 16; Pulse Ox 99% ; bp 16:22 Body Mass Index 31.32 (90.72 kg, 170.18 cm) nj1 16:22 Pain Scale: Adult nj ED Course: 16:16 Patient arrived in ED. ts1 16:21 Janis Carroll FNP-C is PHCP. kb 16:21 Wan Garcia DO is Attending Physician. kb 16:25 Triage completed. nj1 16:26 Arm band placed on left wrist. nj1 16:30 Patient has correct armband on for positive identification. Call light in reach. bp 16:30 Inserted saline lock: 20 gauge in right antecubital area, using aseptic technique. bp Blood collected. 16:33 Radiology exam delayed due to lab results not completed at this time. (BUN/Creatinine) jg10 IV insertion attempt and/or patient not having appropriate IV at this time. 16:44 Scott Tomlin RN is Primary Nurse. bp 18:11 CT Abd/Pelvis - IV Contrast Only In Process Unspecified. EDMS 18:52 Primary Nurse role handed off by Scott Tomlin RN kb 18:52 Attending Physician role handed off by Wan Garcia DO kb 18:53 Scott Tomlin RN is Primary Nurse. bp 18:57 No provider procedures requiring assistance completed. IV discontinued, intact, bp bleeding controlled, No redness/swelling at site. Pressure dressing applied. Administered Medications: 17:04 Drug: NS 0.9% IV 1000 ml Route: IV; Rate: 1 bolus; Site: right antecubital; bp 18:43 Follow up: IV Status: Completed infusion; IV Intake: 1000ml bp 17:04 Drug: TORadol - Ketorolac IVP 15 mg Route: IVP; Site: right antecubital; bp 18:42 Follow up: Response: No adverse reaction bp 17:04 Drug: Ondansetron IVP 4 mg Route: IVP; Site: right antecubital; bp 18:42 Follow up: Response: No adverse reaction bp 17:40 Drug: morphine IVP or IV 4 mg Route: IVP; Infused Over: 4 mins; Site: right antecubital;bp 18:43 Follow up: Response: No adverse reaction bp 18:57 Drug: [place] PO 10 mg-325 mg 1 tabs Route: PO; bp 18:57 Follow up: Response: Medication administered at discharge. bp Medication: 18:57 VIS not applicable for this client. bp Intake: 18:43 IV: 1000ml; Total: 1000ml. bp Outcome: 18:38 Discharge ordered by MD. kb 18:51 Patient left the ED. kj1 18:57 Discharged to home ambulatory, with family. bp 18:57 Condition: stable 18:57 Discharge instructions given to patient, Instructed on discharge instructions, follow up and referral plans. medication usage, Demonstrated understanding of instructions, follow-up care, medications, Prescriptions given X 1. 18:58 Patient left the ED. bp Addendum: 12/21/2022 07:38 Addendum: Culture Results: Positive urine culture. No further action required. Bacteria e b sensitive to prescribed antibiotic. Signatures: Dispatcher [employer] EDMS Janis Carroll, BRIANNA-C INDUSTRIAL ECONOMIST-Scott Francis, RN RN Deb Molina Kandis kj1 Luz Bethea jg10 Kortney Ley RN RN nj1 Rosario Jacobo, DENICE PAS ts1 Corrections: (The following items were deleted from the chart) 12/18 16:26 16:25 PSHx: Total abdominal hysterectomy; nj1 nj1
--- NOTE | 2022-12-18 18:39 | EDPHYS ---
Physician Documentation [facility] Name: Kaley Dobson Age: 42 yrs Sex: Female : 1980 Arrival Date: 12/18/2022 Time: 16:15 Bed 10 Private MD: ED Physician HPI: 12/18 17:10 This 42 yrs old Female presents to ER via Ambulatory with complaints of Abdominal Pain. kb 17:10 The patient presents with abdominal pain in the lower abdomen. The patient has not kb recently seen a physician. 17:11 Onset: The symptoms/episode began/occurred today. The symptoms do not radiate. kb Associated signs and symptoms: Pertinent positives: dysuria, hematuria, nausea. The symptoms are described as constant. Modifying factors: The symptoms are alleviated by nothing, the symptoms are aggravated by nothing. Severity of pain: At its worst the pain was moderate in the emergency department the pain is unchanged. The patient has not experienced similar symptoms in the past. Historical: - Allergies: 16:25 PENICILLINS; nj1 - PMHx: 16:25 None; nj1 - PSHx: 16:25 foot; Partial hysterectomy; nj1 - Immunization history:: Client reports having NOT received the Covid vaccine. - Social history:: Smoking status: Patient reports the use of cigarette tobacco products, smokes one-half pack cigarettes per day. ROS: 17:09 Constitutional: Negative for fever, chills, and weight loss. kb 17:09 Abdomen/GI: Positive for abdominal pain, nausea. 17:09 : Positive for small amounts, hematuria. 17:09 All other systems are negative. Exam: 17:09 Constitutional: This is a well developed, well nourished patient who is awake, alert, kb and in no acute distress. Head/Face: Normocephalic, atraumatic. ENT: Moist Mucous membranes Cardiovascular: Regular rate and rhythm with a normal S1 and S2. No gallops, murmurs, or rubs. No pulse deficits. Respiratory: Respirations even and unlabored. No increased work of breathing. Talking in full sentences Skin: Warm, dry with normal turgor. Normal color. MS/ Extremity: Pulses equal, no cyanosis. Neurovascular intact. Full, normal range of motion. Neuro: Awake and alert, GCS 15, oriented to person, place, time, and situation. Moves all extremities. Normal gait. 17:09 Abdomen/GI: Inspection: abdomen appears normal, Bowel sounds: normal, Palpation: soft, in all quadrants, moderate abdominal tenderness, in the right lower quadrant and left lower quadrant. Vital Signs: 16:22 BP 139 / 104; Pulse 75; Resp 18; Temp 98.1(O); Pulse Ox 100% ; Weight 90.72 kg; Height nj1 5 ft. 7 in. ; Pain 10/10; 18:57 BP 127 / 95; Pulse 71; Resp 16; Pulse Ox 99% ; bp 16:22 Body Mass Index 31.32 (90.72 kg, 170.18 cm) nj1 16:22 Pain Scale: Adult nj1 MDM: 16:21 Patient medically screened. kb 17:10 Data reviewed: vital signs, nurses notes. kb 17:10 Differential diagnosis: Pyelonephritis, Ureterolithiasis, urinary tract infection. kb 18:32 Counseling: I had a detailed discussion with the patient and/or guardian regarding: the kb historical points, exam findings, and any diagnostic results supporting the discharge/admit diagnosis, lab results, radiology results, the need for outpatient follow up, a family practitioner, to return to the emergency department if symptoms worsen or persist or if there are any questions or concerns that arise at home. 12/18 16:31 Order name: CBC with Diff; Complete Time: 17:51 kb 12/18 16:31 Order name: CMP; Complete Time: 17:51 kb 12/18 16:31 Order name: Lipase; Complete Time: 17:51 kb 12/18 16:31 Order name: Test, Urine; Complete Time: 17:56 kb 12/18 16:31 Order name: Urinalysis w/ reflexes; Complete Time: 17:56 kb 12/18 17:56 Order name: Urine Culture EDMS 12/18 16:31 Order name: CT Abd/Pelvis - IV Contrast Only; Complete Time: 18:31 kb 12/18 16:31 Order name: IV Saline Lock; Complete Time: 17:04 kb 12/18 16:31 Order name: Labs collected and sent; Complete Time: 17:04 kb Administered Medications: 17:04 Drug: NS 0.9% IV 1000 ml Route: IV; Rate: 1 bolus; Site: right antecubital; bp 18:43 Follow up: IV Status: Completed infusion; IV Intake: 1000ml bp 17:04 Drug: TORadol - Ketorolac IVP 15 mg Route: IVP; Site: right antecubital; bp 18:42 Follow up: Response: No adverse reaction bp 17:04 Drug: Ondansetron IVP 4 mg Route: IVP; Site: right antecubital; bp 18:42 Follow up: Response: No adverse reaction bp 17:40 Drug: morphine IVP or IV 4 mg Route: IVP; Infused Over: 4 mins; Site: right antecubital;bp 18:43 Follow up: Response: No adverse reaction bp 18:57 Drug: [place] PO 10 mg-325 mg 1 tabs Route: PO; bp 18:57 Follow up: Response: Medication administered at discharge. bp Disposition: 17:12 Co-signature as Attending Physician, Wan MCGARRY was immediately available on-site ms3 in the Emergency Department for consultation in the care of the patient. Disposition Summary: 12/18/22 18:38 Discharge Ordered Location: Home kb Condition: Stable kb Diagnosis - Lower abdominal pain, unspecified kb - UTI/ Urinary tract infection, site not specified kb Followup: kb - With: Emergency Department - When: As needed - Reason: Worsening of condition Followup: kb - With: Private Physician - When: 2 - 3 days - Reason: Recheck today's complaints, Continuance of care, Re-evaluation by your physician Discharge Instructions: - Discharge Summary Sheet kb - Urinary Tract Infection, Adult, [id number] kb - Abdominal Pain, Adult, [id number] kb Forms: - Medication Reconciliation Form kb - Thank You Letter kb - Antibiotic Education kb - Prescription Opioid Use kb - Work release form bp Prescriptions: - Bactrim DS 800-160 mg Oral Tablet - take 1 tablet by ORAL route every 12 hours for 7 days; 14 tablet; Refills: 0, kb Product Selection Permitted Signatures: Dispatcher [employer] Janis Tolbert, Scott Curry, RN RN Wan Mancilla DO DO ms3 Kortney Ley RN RN nj1 Corrections: (The following items were deleted from the chart) 16:26 16:25 PSHx: Total abdominal hysterectomy; nj1 nj1
[2022-12-18] MEDS ORDERED: HYDROCODONE/APAP 10/325 TAB ONE (18:59)
[2022-12-18 19:15] VITALS: TEMP 98.1
[2022-12-18 19:19] VITALS: BP 127/95; O2SAT 99
== END 2022-12-18 18:58 | disposition home or self-care (01) ==
LOC: ER 16:15
DX: N39.0 Urinary tract infection, site not specified (principal)
CPT/HCPCS: 36415; 74177; 80053; 81001; 81025; 83690; 85025; 87077; 87086; 87088; 87186; 96361; 96374; 96375; 99284; J2405; J7030; Q9967